=== PATIENT | female | born 1940 | race Caucasian/White ===

== ENCOUNTER 2017-06-18 07:21 | Day surgery (SDC) | payer MEDICARE ==
--- NOTE | 2017-06-07 06:23 | HP ---
CC: Alex Banks MD; Yvrose Saldana MD * ADMISSION HISTORY AND PHYSICAL: DATE OF ADMISSION/SURGERY: 06/18/17 PATIENT OF: Yanet Calderon MD. PRIMARY CARE PHYSICIAN: Alex Banks MD. ATTENDING SURGEON: Yanet Calderon MD. * (DICTATED BY MICHELLE APONTE) CHIEF COMPLAINT: Right breast cancer. HISTORY OF PRESENT ILLNESS: Ms. Dunbar is a pleasant 76-year-old female who was referred by Dr. Banks to [facility] for discussion of right breast cancer. The patient unfortunately underwent a screening mammogram earlier this month that revealed abnormality on the right breast. 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 The patient herself denies any changes in her breasts. She denies any skin changes, nipple discharge, lumps, or masses. In retrospect, she notes having some nipple discharge about 20 years ago that was bilaterally noted and then resolved spontaneously. She denied any changes in either breast since then. She has never had a breast biopsy before. She does have a family history of breast cancer in her sister who was diagnosed at age 68. That same sister in her family had ovarian cancer as well, although the patient herself is not sure about the prognosis. She had menarche at age 14 and first child at age 27 and she did have breast feeding. She was on control pills for a few years approximately 40 years ago. She otherwise denied any breast symptoms until her recent screening mammogram for which she was referred to the [facility] to discuss treatment options. PAST MEDICAL HISTORY: Significant for morbid obesity, hypertension, insulin- dependent diabetes mellitus, osteoarthritis, and multiple environmental and food allergies. She also has history of diabetic retinopathy and neuropathy, history of anxiety, sleep apnea, malignant melanoma of the skin as well as hyperlipidemia. PAST SURGICAL HISTORY: Significant for carpal tunnel release bilaterally as well as hysterectomy and bilateral salpingo-oophorectomy back in the mid 80s. The patient is also status post appendectomy, cholecystectomy, bilateral eye surgery for glaucoma and bilateral cataract extraction in 2011. CURRENT MEDICATIONS: Her medications at home include: 1. Bupropion extended release 300 mg 1 tablet daily. 2. Aleve 220 mg 3 times a day. 3. Magnesium citrate 1200 mg 3 tablets daily. 4. Amlodipine 10 mg p.o. daily. 5. Atenolol 100 mg p.o. daily. 6. Atorvastatin 40 mg p.o. daily. 7. NovoLog 100 unit/mL as directed per sliding scale. 8. Lisinopril 40 mg p.o. daily. 9. Biotin 1000 mcg p.o. daily. 10. Oxybutynin 5 mg p.o. daily. 11. Clonazepam 0.5 mg p.o. q.8 h. as needed for anxiety. 12. The patient also takes multiple vitamin supplements including vitamin C, vitamin D, multivitamin complex, dark chocolate extract, glucosamine, tumeric, and cumin tablets on a daily basis. ALLERGIES: Multiple allergies, mostly environmental and food related allergies ; however, she does not have any known drug allergies. FAMILY HISTORY: Significant for a sister who was diagnosed with breast cancer at age 68. She denies any family history of colorectal malignancies. SOCIAL HISTORY: The patient has never smoked. She rarely drinks alcohol and caffeine intake is minimal. REVIEW OF SYSTEMS: See HPI, otherwise negative. She does report history of headache related to her allergy, possibly migraine, as well as history of anxiety and depression. She also reports history of skin cancers in the past, but not quite sure if they were melanoma or just basal cells. She did have a lot of sun exposure as a child since she was raised in [facility]. She denies any chest pain, back pain, palpitation, cough, or wheezing. No back pain, flank pain, hematuria, dysuria, or urinary frequency. She denies any breast lumps, masses, skin changes or nipple discharge. No abdominal pain, nausea, vomiting, or recent changes in the bowel habits. She denies any fever, chills, night sweats, or recent weight loss. PHYSICAL EXAMINATION GENERAL: She is a pleasant morbidly obese elderly female, in no acute distress or discomfort at the time of her visit. VITAL SIGNS: Reveal blood pressure of 116/74, pulse of 76, temperature of 98, and respirations of 16. She weighs 263 pounds on a 5 feet 5-inch frame with BMI of 44. HEENT: Head is normocephalic, atraumatic. Sclerae anicteric. PERRLA. EOMs intact. Oropharynx pink and moist. NECK: Supple. Trachea midline. No cervical adenopathy or thyromegaly. LUNGS: Clear to auscultation bilaterally. HEART: Regular rate and rhythm. Normal S1 and S2 without rubs, murmurs, or gallops. BACK: With normal curvature. No CVA tenderness. BREASTS: Her breast exam was performed [address] Calderon that revealed slightly asymmetric breasts with the left side being a little larger than the right. Both breasts are pendulous. There is no skin dimpling or nipple retraction. There is a little bruising noted with ecchymotic area to the lateral aspect of the right breast likely from prior stereotactic biopsy. There is no cervical, supraclavicular, or axillary lymphadenopathy. There is no discrete masses or lesions on either breast. There is no skin changes or nipple discharge. ABDOMEN: Soft, round, and obese. No tenderness or distention noted. No hernias, masses, or hepatosplenomegaly. EXTREMITIES: Without cyanosis, clubbing, or edema. NEUROLOGIC: Grossly intact. RECTAL EXAM: Deferred at this time. IMPRESSION: A 76-year-old female with recent screening mammogram revealing right breast invasive ductal carcinoma. PLAN: The patient is scheduled with Dr. Calderon to undergo mammogram-guided needle localization with excision of right breast cancer as well as right axillary sentinel lymph node biopsy. She has a nonpalpable right breast cancer that warrants further treatment. Dr. Calderon had a long discussion with the patient regarding the option of lumpectomy versus a total mastectomy. The rationale, indications, risks, and benefits of surgery were discussed with her today. Risks include but not limited to infection, bleeding, or injury to adjacent structures. The patient understood and had no further questions and we will obtain medical clearance with Dr. Banks's office as well as baseline laboratory workup as well as updated EKG in anticipation for surgery later by the end of the month. We will follow her up accordingly. MICHELLE APONTE [id number]/[facility] #: [id number] LEEANN
[~2017-06-18 07:21] MED LIST: Buffered Lidocaine 0.9% SYRIN* 5 ML/SYR SYRINGE INTRADERM ONE; Sodium Citrate/Citric Acid* 15 ML UDC PO ONE
[2017-06-18] MEDS ORDERED: ceFAZolin 2 GM PREMIX (*) 2 GM/50 ML BAG IVPB ONE (07:30)
[2017-06-18] MEDS ORDERED: Sodium Citrate/Citric Acid* 15 ML UDC ONE (07:30)
[2017-06-18] MEDS ORDERED: Lidocaine 2.5%/Prilocain 2.5%* 5 GM TUBE ONE (07:30)
[2017-06-18] MEDS ORDERED: Heparin VIAL(*) 5000 UNITS/ML VIAL (FIVE THOUSAND) ONE (07:30)
--- NOTE | 2017-06-18 10:26 | RAD ---
INDICATION: Right breast carcinoma COMPARISON: Mammogram May 11, 2017 TECHNIQUE: Informed consent was obtained. A routine timeout procedure was initiated. The right breast was prepped in usual fashion and 4 intradermal injections of a total of 0.34 mCi of technetium 99m sulfur colloid was injected in the lateral periareolar region. Scintigraphic images were then obtained following a brief period FINDINGS: There is prompt visualization of the sentinel node (S) which was subsequently marked on the skin surface. The patient tolerated the procedure well. The patient and images were transferred to the OR holding suite IMPRESSION: SUCCESSFUL SENTINEL NODE IMAGING.
[2017-06-18] MEDS ORDERED: Atenolol TAB* 50 MG PO ONE (11:00)
[2017-06-18] MEDS ORDERED: Lidocain 1% EPI 1:100,000 * 30 ML MDV ONE (12:45)
[2017-06-18] MEDS ORDERED: Bupivacaine 0.5% SDV PF* 10-30ML VIAL ONE (12:46)
[2017-06-18] MEDS ORDERED: Lidocaine 1% INJ* 10 MG/ML 30 ML SDV ONE (12:46)
[2017-06-18] MEDS ORDERED: Insulin LISPRO* 1 UNITS UNIT SUBCUT ONE (12:47)
[2017-06-18] MEDS ORDERED: Midazolam* 1 MG/ML 2 ML VIAL (2 MG) ONE (12:51)
[2017-06-18] MEDS ORDERED: Famotidine IV* 10 MG/ML 2 ML (20 mg) ONE (13:30)
[2017-06-18] MEDS ORDERED: Phenylephrine IV* 40 MCG/ML 10 ML SYRINGE ONE (13:42)
[2017-06-18] MEDS ORDERED: Ketorolac INJ* 30 MG/ML 1 ML VIAL ONE (14:00)
[2017-06-18] MEDS ORDERED: Propofol* 10 MG/ML 20 ML BTL IV PUSH ONE (14:00)
[2017-06-18] MEDS ORDERED: Ondansetron INJ* 2 MG/ML VIAL ONE (14:00)
[2017-06-18] MEDS ORDERED: Mivacurium Chloride* 20 MG/10 ML VIAL IV ONE (14:00)
[2017-06-18] MEDS ORDERED: EPHEDrine (Pressors)* 50 MG/ML VIAL ONE (14:13)
--- NOTE | 2017-06-18 14:15 | RAD ---
INDICATION: Right breast carcinoma-wire needle localization COMPARISON: Right breast mammogram and ultrasound guided right breast biopsy May 19, 2017 TECHNIQUE/FINDINGS: Informed consent was obtained following the usual expiration of risks and benefits the procedure. A routine timeout procedure was conducted. The right breast was prepped in usual fashion and from a lateral approach using a 7.5 cm Soto wire/needle, the right breast mass was localized without difficulty the brachium the wire was placed at the level of the mass. The patient tolerated the procedure well. There are no complications. The patient was transferred to nuclear medicine for the sentinel node scan. IMPRESSION: SUCCESSFUL WIRE NEEDLE LOCALIZATION OF THE RIGHT BREAST MASS. THE SPECIMEN RADIOGRAPH IS PENDING. ADDENDUM: The specimen radiograph shows that the wire is been removed. The microclip and the mass are in the largest specimen.
[2017-06-18] MEDS ORDERED: Lidocaine 2% PF * 5 ML VIAL ONE (14:23)
[2017-06-18 15:31] VITALS: BP 148/62
--- NOTE | 2017-06-19 13:58 | OP ---
CC: [facility]; Dr. Alex Banks; [facility] OPERATIVE REPORT: DATE OF OPERATION: 06/18/17 DATE OF : 42 SURGEON: Yanet Calderon MD. PIN PULLER: Ms. Patricio NP. PRE-OP DIAGNOSIS: Right breast cancer. POST-OP DIAGNOSIS: Right breast cancer. OPERATIVE PROCEDURE: Needle localization, excision of right breast cancer and sentinel lymph node bi opsy. INDICATIONS: Ms. Dunbar is a 76-year-old woman recently diagnosed with breast cancer who has opted fo r breast conserving therapy. On the morning of surgery, she underwent needle localization without di fficulty and also sentinel lymph node localization without difficulty. DESCRIPTION OF PROCEDURE: She was then brought to the operating room, placed on the OR table in the supine position and given general anesthesia. The right breast and axilla were prepped and draped in the usual sterile fashion. After infiltrating with local anesthetic, a curvilinear elliptical incisi on encompassing the wire was made. Subcutaneous tissue was then divided with electrocautery to compl etely excise the mass of tissue from around the wire. It was recognized that at the medial extent of the dissection, the tumor was at the edge of the specimen. Therefore, after the first specimen was o ut and marked in the usual fashion and handed to go to Radiology, a second specimen was taken from me dial to the first specimen such that the lateral aspect of the second specimen apposed the medial asp ect of the first specimen. The second specimen was also marked in the usual fashion and handed off t o go to radiology as well. The report eventually came back from radiology that the first specimen in deed contained the clip and the mass and there was no abnormality noted in the second specimen. Mean while hemostasis was achieved with electrocautery. The wound was irrigated with saline and once it a ppeared that hemostasis was adequate, closure was accomplished. This was done with 3-0 Polysorb in t he subcutaneous layer and skin was closed with 4-0 Prolene in a subcuticular fashion. Attention was then turned to the location of sentinel node. This was in the axillary tail of the pilar ast apparently, so an incision was made after infiltrating with local anesthetic over the area that h ad been marked by Radiology. Subcutaneous tissue was then divided with electrocautery down to the spo t where the activity could be better identified and this turned out to be in the low axilla. The radi oactive lymph node was grasped and excised and noted to have counts around 15,000. However there wer e still elevated counts in the axilla of around 270. So an additional lymph node was taken and ident ified as sentinel node number 2. Its ex-vivo counts were around 500. The axillary bed counts were a round 9. The wound was irrigated with saline. Additional local was instilled into the wound and onc e it was ascertained that hemostasis was adequate, closure was accomplished using 3-0 Vicryl in the s ubcutaneous layer and the skin was closed with 4-0 Surgipro in a subcuticular fashion. Steri-Strips and a dry sterile dressings were applied to both incisions. All sponge and instrument counts were co rrect. The patient tolerated the procedure well and was transferred to recovery in a stable conditio n. [id number]/[facility] #: [id number]
== END 2017-06-18 16:40 | disposition home or self-care (01) ==
LOC: SDS 07:21
PROVIDERS: ATTEND Surgery
DX: C50.911 Malignant neoplasm of unspecified site of right female breast (principal); Z79.4 Long term (current) use of insulin; E66.01 Morbid (severe) obesity due to excess calories; E11.40 Type 2 diabetes mellitus with diabetic neuropathy, unspecified; E11.319 Type 2 diabetes mellitus with unspecified diabetic retinopathy without macular edema; E78.5 Hyperlipidemia, unspecified; G47.30 Sleep apnea, unspecified; F41.9 Anxiety disorder, unspecified; Z85.820 Personal history of malignant melanoma of skin
CPT/HCPCS: 78195; 88307; 88342; A9270-GY; A9541; J0690; J1644; J1885; J2250; J2405; J2704

== ENCOUNTER 2018-01-24 17:32 | Emergency (ER) | payer MEDICARE ==
--- OUTSIDE RECORDS SUMMARY | 2018-01-24 18:00 | XMS REPORT | Continuity of Care Document ---
:1940 External Reference #:[id number] Author Name Kolby Guadarrama M.D. Address [address] [place] [address] Care Team Providers Name Role Phone Alex Banks M.D. Primary Care Physician Unavailable Payers Type Date Identification Numbers Payment Provider Subscriber Policy Number: [id number] Medicare - [facility] Janie Dunbar PayID: [id number] [address] [place] [address] Policy Number: [id number] [facility] Janie Dunbar PayID: [id number] [address] [place] [address] Advance Directives Description No Information Available Problems Date Description Provider Status Onset: Essential hypertension Active Onset: Sleep apnea Active Onset: Panic attack Active Onset: Hypercholesterolemia Active Onset: Mild depression Active Onset: Type 2 diabetes mellitus Active Note: 2000 Onset: Incontinence Active Onset: H/O Malignant melanoma Active Note: 2013 Onset: 01/24/2015 Presence of intraocular lens Kolby Guadarrama M.D. Active Onset: 02/21/2016 Arthritis Kolby Guadarrama M.D. Active Onset: 02/21/2016 Type 2 diabetes mellitus with mild Kolby Guadarrama M.D. Active nonproliferative diabetic retinopathy without macular edema, bilateral Family History Date Family Member(s) Problem(s) Comments Father Glaucoma Mother Cataract Mother Diabetes Mellitus Type 2 Social History Type Date Description Comments Sex Unknown Marital Status Legal Status: Occupation Homemaker Work Status Retired ETOH Use Occasionally consumes alcohol Tobacco Use Start: Unknown Patient has never smoked Recreational Drug Use Denies Drug Use Smoking Status Reviewed: 01/06/18 Patient has never smoked Allergies, Adverse Reactions, Alerts Date Description Reaction Status Severity Comments 02/23/2017 NKDA Active 02/23/2017 Environmental Active Medications Medication Date Status Form Strength Qnty SIG Indications Ordering Provider Microsuns Lamp 02/20/ Active Bulb [id number] Kolby Hare Bulb 2016 Camilo Guadarrama Systane Ultra 01/23/ Active Solution 0.4-0.3% 1 drop Kolby Hare 2015 both john Guadarrama M.D. every day Atorvastatin / Active Tablets 40mg Unknown Calcium 0000 Bupropion HCL ER / Active Tablets ER 300mg Unknown (XL) 0000 24HR Clonazepam / Active Tablets 0.5mg Unknown 0000 Novolog Flexpen / Active Solution 100Unit/ML Unknown 0000 Pen-Inject Lantus Solostar / Active Solution 100Unit/ML Unknown 0000 Pen-Inject Amlodipine / Active Tablets 10mg Unknown Besylate 0000 Atenolol / Active Tablets 100mg Unknown 0000 Lisinopril / Active Tablets 40mg Unknown 0000 Amlactin Ultra / Active Cream Unknown 0000 Acidophilus Plus / Active Tablets Unknown Pectin 0000 Airborne / Active Chewtabs Unknown 0000 Aleve / Active Capsules 220mg as Unknown 0000 needed Aleve PM / Active Tablets 220-25mg Unknown 0000 Saumya Allergy / Active Tablets 180mg as Unknown 0000 needed [place] Nasal Mist / Active Solution 2.65% Unknown Allergy & Sinus 0000 Hypertonic Saline Biotin / Active Capsules 2500mcg Unknown 0000 Calcium Magnesium / Active Tablets 300-300mg Unknown 750 0000 Cranberry / Active Tablets 600mg Unknown 0000 Glucose / Active Chewtabs 4gm Unknown 0000 One Daily Adults / Active Tablets 50+ Unknown 50+ 0000 Vitamin C / Active Capsules 500mg 2 tab by Unknown 0000 mouth every day Vitamin D-3 / Active Capsules 1000Unit Unknown 0000 Ipratropium / Active Solution 0.03% Unknown [place] 0000 Levocetirizine / Active Tablets 5mg Take 1 Unknown Dihydrochloride 0000 Tablet By Mouth Every Day as Needed Myrbetriq / Active Tablets ER 25mg 1 Tab qd Unknown 0000 24HR PO Oxybutynin / Hx Tablets 5mg Unknown Chloride 0000 - 2017 Immunizations Description No Information Available Vital Signs Description No Information Available Results Description No Information Available Procedures Date Code Description Status 02/23/2017 07284 Scanning Computerized Opthalmic Diagnostic Posterior Seg Completed Retina 02/23/2017 20331 Determination Of Refractive State Completed 02/23/2017 45746 Est Patient Comprehensive Exam Completed 02/21/2016 31362 Est Patient Comprehensive Exam Completed 01/24/2015 28748 Est Patient Comprehensive Exam Completed 01/23/2014 89579 Est Patient Comprehensive Exam Completed 05/30/2013 601 [place] Completed 01/20/2013 16790 Determination Of Refractive State Completed 01/20/2013 68037 Est Patient Comprehensive Exam Completed 12/16/2011 17298 Extracapsular Cataract Extraction W/Intraocular Lens Completed 12/09/2011 25071 Extracapsular Cataract Extraction W/Intraocular Lens Completed 11/26/2011 83456 Ophthalmic Biometry Completed 11/26/2011 34935 Ophthalmic Biometry Completed 11/02/2011 79769 Est Patient Comprehensive Exam Completed 11/02/2011 93184 Visual Field Exam Extended Completed 11/02/2011 65197 Scanning Computerized Opthalmic Diagnostic Posterior Seg Completed Retina 10/31/2010 47308 Determination Of Refractive State Completed 10/31/2010 08201 Est Patient Comprehensive Exam Completed 10/22/2009 99824 Iridotomy/Iredectomy By Laser Surgery Completed 10/15/2009 62938 Iridotomy/Iredectomy By Laser Surgery Completed 09/13/2009 03316 Determination Of Refractive State Completed 09/13/2009 04411 Est Patient Comprehensive Exam Completed 02/15/2008 06657 Determination Of Refractive State Completed 02/15/2008 52240 Est Patient Comprehensive Exam Completed 01/28/2007 73374 Determination Of Refractive State Completed 01/28/2007 52819 Est Patient Comprehensive Exam Completed 02/03/2005 54346 Determination Of Refractive State Completed 02/03/2005 14566 Est Patient Comprehensive Exam Completed 01/28/2004 83139 Fundus Photography With Interpretation And Report Completed 01/28/2004 28536 Est Patient Comprehensive Exam Completed Encounters Type Date Location Provider Dx Diagnosis Office Visit 11/26/2011 Kolby Guadarrama, Kolby Guadarrama, 366.16 Senile Nuclear 2:45p jovany UGARTE M.D. Sclerosis / Cataract 366.16 Senile Nuclear Sclerosis / Cataract Office Visit 09/13/2008 9:45a Kolby Guadarrama Marizol C. 366.16 Senile Nuclear , jovany Cuello O.D. Sclerosis / Cataract Plan of Treatment Future Appointment(s):02/24/2018 1:00 pm - Kolby Guadarrama M.D. at [facility] - Kolby Guadarrama M.D.E11.9 Type 2 diabetes mellitus without complicationsComments:Smoking can increase the risk of developing or worsening any eye related disease, as well as affect your overall health. If you are a smoker, we strongly recommend that you quit.If you are not a smoker, we strongly recommend that you do not start. You have diabetes. I do not detect any changes in both of your retinas from diabetes at this time. Proper control of your diabetes is important for the health of your eyes. Changes in your eyes from diabetes can happen without symptoms, so it is important that you have your eyes examined. Dr. Guadarrama has sent a report to your primary care doctor, lettingthem know there is no damage from the Diabetes in your eyes.Follow up:1 Year Follow Up You can expect to have your eyes dilated at your next visit. If Dr. Guadarrama orders any additional testing, it may require extra time. We recommend that you bring sunglasses, as dilationdrops often make you light sensitive until they wear off. We always recommend you bring someone to drive you home if you are uncomfortable driving with your eyes dilated. If you have any questions before your next visit, feel free to call our office at .H04.123 Dry eye syndrome of bilateral lacrimal glandsComments: Both of your eyes appear to be dry. Use artificial tears as directed. You can use the tears more often if you are reading a book or are on the computer, as we tend to blink less, making our eyes dry out more.[facility] offers a few items in our optical department to help alleviate dry eye symptoms. Systane and Refresh are good brands of tears you can use. You can pick these up at any pharmacy and they do not require a prescription.Z96.1 Presence of intraocular lensComments:The artificial lens implants in both eyes appear to be stable at this time.
[2018-01-24] MEDS ORDERED: Acetaminophen TAB* 325 MG PO ONE (18:51)
[2018-01-24 20:43] VITALS: BP 175/89
--- NOTE | 2018-01-24 20:45 | ED ---
Adult Trauma - HPI Summary HPI Summary: A 77 y/o female presents to the ED c/o a head trauma after falling down on uneven pavement in the parking lot of [employer] at 16:00 01/24/2018. She also c/o MAYERS, a bruise on her foot, and an abrasion to her left hand and knee. She denies blurry vision, paresthesia, Fever, Chills, Erythema (eyes), Sore throat, Chest pain, Shortness of Breath, Cough, Abdominal pain, Vomiting, Nausea, Dysuria, Hematuria, Myalgia, Edema, Rash and Dizziness. She denies taking blood thinners. - History of Current Complaint Chief Complaint: EDHeadInjury Stated Complaint: HEAD INJURY Time Seen by Provider: 01/24/18 18:34 Hx Obtained From: Patient, Family/Director Of Accreditation Mechanism of Injury: Fall Onset/Duration: Started Hours Ago Onset of Pain: Immediate Onset Severity: Mild Current Severity: Mild Pain Intensity: 0 Pain Scale Used: 0-10 Numeric Location: Head - Allergy/Home Medications Allergies/Adverse Reactions: Allergies Allergy/AdvReac Type Severity Reaction Status Date / Time peanut Allergy Severe severe Verified 01/24/18 17:50 headache hazelnut Allergy Headache Verified 01/24/18 17:50 ipratropium AdvReac Severe makes nose Verified 01/24/18 17:50 bleed locust Allergy Severe severe Uncoded 07/06/17 13:21 headache ENVIRONMENTAL Allergy Intermediate SEASONAL Uncoded 07/06/17 13:21 lecithin Allergy Intermediate See Comment Uncoded 07/06/17 13:21 raw potato, carrot, apples, Allergy Headache Uncoded 01/24/18 17:50 celery soy AdvReac Severe Headache Uncoded 07/06/17 13:21 PMH/Surg Hx/FS Hx/Imm Hx Endocrine/Hematology History: Reports: Hx Diabetes - INSULIN DEPENDENT Cardiovascular History: Reports: Hx Congestive Heart Failure - CHOLESTEROL CONTROL WITH MEDICATION, Hx Hypertension - ON MEDICATION Denies: Hx Pacemaker/ICD Respiratory History: Reports: Hx Pulmonary Embolism, Hx Sleep Apnea - current CPAP user, Other Respiratory Problems/Disorders - 1960'S PLEURAL RUB GI History: Reports: Hx Gastroesophageal Reflux Disease - OCCASIONAL History: Reports: Other Problems/Disorders - INCONTINENT Denies: Hx Renal Disease Musculoskeletal History: Reports: Hx Arthritis - KNEES AND ANKLES, Other Musculoskeletal History - LEFT POSTERIOR TIBIAL TENDON TEAR, OCCASIONAL FOOT BRACE Denies: Hx Osteoporosis Sensory History: Reports: Hx Cataracts - BILATERAL, Hx Contacts or Glasses - READING, Hx Glaucoma - BILATERAL Denies: Hx Hearing Aid Opthamlomology History: Reports: Hx Cataracts - BILATERAL, Hx Contacts or Glasses - READING, Hx Glaucoma - BILATERAL Neurological History: Comment Only: 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 APPENDECTOMY, CHOLECYSTECTOMY,. DENTAL SURGERY. LEFT CARPAL TUNNEL RELEASE, [facility]. BILATERAL CATARACT SURGERY, [facility]. COLONOSCOPY, [facility]. HYSTERECTOMY,[facility]. SEVERAL SKIN SPOTS EXCISED IN OFFICE. LEFT FOOT SURGERY TOE NAIL REMOVED TO PUT ON LEFT THUMB, ( DID NOT WORK) [facility] Hx Anesthesia Reactions: Yes - COLONOSCOPY-FELT LOTS OF PAIN,NO IV'S IN BACK OF HAND Infectious Disease History: No Infectious Disease History: Reports: Hx Hepatitis - HISTORY OF HEPATITS IN [facility], NO SYMPTOMS SINCE Denies: Traveled Outside the [place] in Last 30 Days - Family History Known Family History: Positive: Other - breast CA Family History: FHx of breast CA - Sister - Social History Alcohol Use: Rare Alcohol Amount: 1 month Substance Use Type: Reports: None Smoking Status (MU): Never Smoked Tobacco Have You Smoked in the Last Year: No Review of Systems Negative: Fever, Chills Negative: Blurred Vision, Erythema Negative: Sore Throat Negative: Chest Pain Negative: Shortness Of Breath, Cough Negative: Abdominal Pain, Vomiting, Nausea Negative: dysuria, hematuria Negative: Myalgia, Edema Positive: Bruising, Other - Positive: abrasion Positive: Headache. Negative: Paresthesia All Other Systems Reviewed And Are Negative: Yes Physical Exam - Summary Physical Exam Summary: Constitutional: Well-developed, Well-nourished, Alert, Cooperative Skin: Warm, Dry HENT: Normocephalic; No Racoons eyes; No wright's sign; left frontal scalp abrasion; No contusion; No hemotympanum; No maxilla facial tenderness or instability; Dentition are smooth; No dental trauma; No trismus Eyes: EOM normal, PERRL Neck: Trachea is midline. No stridor; No JVD; No step off; No posterior cervical spine tenderness Cardio: Rhythm regular, rate normal Heart sounds normal; Intact distal pulses; The pedal pulses are 2+ and symmetric. Radial pulses are 2+ and symmetric. Pulmonary/Chest wall: Effort normal; Breath sounds normal; Equal chest rise; No flail segment; No rib tenderness; No sternal tenderness Abd: Soft, Appearance normal. No distension; No tenderness; No palpable pulsatile mass; No Cullens sign; No Almaraz-Turners sign Musculoskeletal: Abrasion left knee no tenderness, left palmar abrasion, No joint swelling; No vertebral body tenderness; No paraspinal tenderness; No step off or deformity of the spine; Pelvis is stable to lateral compression and rock Neuro: Alert, Oriented x3, Strength 5/5 all extremities. : No blood at urethral meatus Psych: Mood and affect Normal GCS: 15 Triage Information Reviewed: Yes Vital Signs On Initial Exam: Initial Vitals Temp Pulse Resp BP Pulse Ox 97.3 F 98 16 184/95 96 01/24/18 17:38 01/24/18 17:38 01/24/18 17:38 01/24/18 17:38 01/24/18 17:38 Vital Signs Reviewed: Yes Diagnostics - Vital Signs Vital Signs Temp Pulse Resp BP Pulse Ox 01/24/18 20:41 98.6 F 92 20 175/89 94 01/24/18 17:38 97.3 F 98 16 184/95 96 - Laboratory Lab Statement: Any lab studies that have been ordered have been reviewed, and results considered in the medical decision making process. - CT Brain CT Interpretation Completed By: Radiologist - 1. No acute intracranial findings. Chronic and age-related change as above. 2. Left frontal scalp hematoma. This report has been reviewed by the ED physician. Re-Evaluation - Re-Evaluation First Eval Re-Evaluation Time: 18:00 Change: Unchanged Comment: Gave wound care. Adult Trauma Course/Dx - Course Course Of Treatment: A 77 y/o female presents to the ED c/o a head trauma after falling down on uneven pavement in the parking lot of [facility] at 16:00 2017. Her PE revealed a left knee abrasion no tenderness, a left frontal scalp abrasion and a palmar abrasion. Her brain CT showed a left frontal scalp hematoma. Dx: scalp hematoma, hand abrasion. The pt will be discharged home and is agreeable to this plan. - Diagnoses Provider Diagnoses: Scalp hematoma, Hand abrasion Discharge - Sign-Out/Discharge Documenting (check all that apply): Patient Departure - DC - Discharge Plan Condition: Stable Disposition: HOME Patient Education Materials: Acute Wound Care (ED), Abrasion (ED) Referrals: Alex Banks MD [Primary Care Provider] - (2-3 days) Additional Instructions: RETURN TO THE EMERGENCY DEPARTMENT FOR CHANGING OR WORSENING SYMPTOMS - Attestation Statements Document Initiated by Scribe: Yes Documenting Scribe: Brodie Mcgrath Provider For Whom Scribe is Documenting (Include Credential): Benjamin Rosario Scribjannet Attestation: Brodie Diaz, scribed for Benjamin Rosario on 01/24/18 at 2102.
== END 2018-01-24 20:41 | disposition home or self-care (01) ==
LOC: ED 17:32
DX: S09.90XA Unspecified injury of head, initial encounter (principal); X58.XXXA Exposure to other specified factors, initial encounter; Y92.9 Unspecified place or not applicable; Z53.21 Procedure and treatment not carried out due to patient leaving prior to being seen by health care provider
CPT/HCPCS: 70450; A9270-GY

== ENCOUNTER 2018-03-04 19:26 | Emergency (ER) | payer MEDICARE ==
[2018-03-04 21:03] LABS: ABS Basophils 0 10^3/ul (0-0.2); ABS Eosinophils 0.1 10^3/ul (0-0.6); ABS Lymphocytes 1.1 10^3/ul (1.0-4.8); ABS Monocytes 0.4 10^3/ul (0-0.8); ABS Neutrophils 3.7 10^3/ul (1.5-7.7); ABS Nucleated RBC 0 10^3/ul; Eosinophil % 2.7 %; Hematocrit 47 % (35-47); Hemoglobin 15.7 g/dl (12.0-16.0); Lymphocyte % 20.2 %; Mean Corpuscular HGB Conc 34 g/dl (31-36); Mean Corpuscular Hemoglobin 29 pg (27-31); Mean Corpuscular Volume 87 fL (80-97); Mean Platelet Volume 8.6 fL (7.4-10.4); Nucleated Red Blood Cells % 0.1; Platelet Count 177 10^3/ul (150-450); Red Blood Count 5.36 10^6/ul (4.00-5.40); Red Cell Distribution Width 14 % (10.5-15); White Blood Count 5.4 10^3/ul (3.5-10.8)
[2018-03-04 21:18] LABS: EGFR Non-African American 97.2 (>60)
[2018-03-04] MEDS ORDERED: NS 0.9% 1000 ML* 1,000 ML IV ONE (21:35)
[2018-03-04] MEDS ORDERED: clonazePAM TAB(*) 0.5 MG PO ONE (22:27)
[2018-03-04] MEDS ORDERED: Insulin REGULAR(*) 1 UNITS UNIT SUBCUT ONE (22:53)
[2018-03-05] MEDS ORDERED: Lisinopril TAB* 10 MG PO ONE (00:02)
[2018-03-05] MEDS ORDERED: Benzonatate CAP* 100 MG PO ONE (00:05)
--- NOTE | 2018-03-05 02:36 | ED ---
Influenza-Like Illness - HPI Summary HPI Summary: Patient complains of productive cough, mild sore throat, nasal congestion 2 days. Denies fever, MAYERS, neck stiffness, ear pain, CP, SOB, N/V/D, abdominal pain, change in urine, change in BM. Medical history is HTN, DM, HDL, incontinence, anxiety, skin cancer. Patient states she has not taken her insulin or blood pressure medications today. Also denies taking any antipyretics today. - History of Current Complaint Chief Complaint: EDFluSymptoms Time Seen by Provider: 03/04/18 21:32 Hx Obtained From: Patient, Family/Laundry Marker Supervisor Onset/Duration: Gradual Onset Severity: Moderate Associated Signs & Symptoms: Cough, Sore Throat, Nasal Congestion - Allergy/Home Medications Allergies/Adverse Reactions: Allergies Allergy/AdvReac Type Severity Reaction Status Date / Time peanut Allergy Severe severe Verified 03/04/18 19:48 headache hazelnut Allergy Headache Verified 03/04/18 19:48 ipratropium AdvReac Severe makes nose Verified 03/04/18 19:48 bleed locust Allergy Severe severe Uncoded 07/06/17 13:21 headache ENVIRONMENTAL Allergy Intermediate SEASONAL Uncoded 07/06/17 13:21 lecithin Allergy Intermediate See Comment Uncoded 07/06/17 13:21 raw potato, carrot, apples, Allergy Headache Uncoded 01/24/18 17:50 celery soy AdvReac Severe Headache Uncoded 07/06/17 13:21 PMH/Surg Hx/FS Hx/Imm Hx Endocrine/Hematology History: Reports: Hx Diabetes - INSULIN DEPENDENT Cardiovascular History: Reports: Hx Congestive Heart Failure - CHOLESTEROL CONTROL WITH MEDICATION, Hx Hypertension - ON MEDICATION Denies: Hx Pacemaker/ICD Respiratory History: Reports: Hx Pulmonary Embolism, Hx Sleep Apnea - current CPAP user, Other Respiratory Problems/Disorders - 1960'S PLEURAL RUB GI History: Reports: Hx Gastroesophageal Reflux Disease - OCCASIONAL History: Reports: Other Problems/Disorders - INCONTINENT Denies: Hx Renal Disease Musculoskeletal History: Reports: Hx Arthritis - KNEES AND ANKLES, Other Musculoskeletal History - LEFT POSTERIOR TIBIAL TENDON TEAR, OCCASIONAL FOOT BRACE Denies: Hx Osteoporosis Sensory History: Reports: Hx Cataracts - BILATERAL, Hx Contacts or Glasses - READING, Hx Glaucoma - BILATERAL Denies: Hx Hearing Aid Opthamlomology History: Reports: Hx Cataracts - BILATERAL, Hx Contacts or Glasses - READING, Hx Glaucoma - BILATERAL Neurological History: Comment Only: 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 APPENDECTOMY, CHOLECYSTECTOMY,. DENTAL SURGERY. LEFT CARPAL TUNNEL RELEASE, [facility]. BILATERAL CATARACT SURGERY, [facility]. COLONOSCOPY, [facility]. [place]STERECTOMY,[place]. SEVERAL SKIN SPOTS EXCISED IN OFFICE. LEFT FOOT SURGERY TOE NAIL REMOVED TO PUT ON LEFT THUMB, ( DID NOT WORK) [facility] Hx Anesthesia Reactions: Yes - COLONOSCOPY-FELT LOTS OF PAIN,NO IV'S IN BACK OF HAND Infectious Disease History: No Infectious Disease History: Reports: Hx Hepatitis - HISTORY OF HEPATITS IN [facility], NO SYMPTOMS SINCE Denies: Traveled Outside the in Last 30 Days - Family History Known Family History: Positive: Other - breast CA Family History: FHx of breast CA - Sister - Social History Alcohol Use: Rare Alcohol Amount: 1 month Substance Use Type: Reports: None Smoking Status (MU): Never Smoked Tobacco Have You Smoked in the Last Year: No Review of Systems Constitutional: Negative Eyes: Negative Positive: Sore Throat, Nasal Discharge Cardiovascular: Negative Positive: Cough Gastrointestinal: Negative Genitourinary: Negative Musculoskeletal: Negative Skin: Negative Neurological: Negative Psychological: Normal All Other Systems Reviewed And Are Negative: Yes Physical Exam Triage Information Reviewed: Yes Vital Signs On Initial Exam: Initial Vitals Temp Pulse Resp BP Pulse Ox 98 F 110 20 170/91 95 03/04/18 19:43 03/04/18 19:43 03/04/18 19:43 03/04/18 19:43 03/04/18 19:43 Vital Signs Reviewed: Yes Appearance: Positive: Well-Appearing Skin: Positive: Warm Head/Face: Positive: Normal Head/Face Inspection Eyes: Positive: Normal ENT: Positive: Normal ENT inspection Neck: Positive: Supple Respiratory/Lung Sounds: Positive: Clear to Auscultation Cardiovascular: Positive: Normal Abdomen Description: Positive: Nontender Musculoskeletal: Positive: Normal Neurological: Positive: Normal Psychiatric: Positive: Normal AVPU Assessment: Alert - [place] Coma Scale Best Eye Response: 4 - Spontaneous Best Motor Response: 6 - Obeys Commands Best Verbal Response: 5 - Oriented Coma Scale Total: 15 Diagnostics - Vital Signs Vital Signs Temp Pulse Resp BP Pulse Ox 03/05/18 01:06 107 157/105 94 03/05/18 01:00 107 93 03/05/18 00:36 107 178/99 92 03/05/18 00:08 107 95 03/05/18 00:07 108 196/124 96 03/05/18 00:00 108 95 03/04/18 23:37 108 163/117 97 03/04/18 23:13 111 94 03/04/18 23:12 112 213/120 95 03/04/18 22:39 210/104 03/04/18 22:06 95 214/116 93 03/04/18 19:43 98 F 110 20 170/91 95 - Laboratory Lab Results: Lab Results 03/04/18 03/04/18 03/04/18 Range/Units 20:52 20:52 20:52 WBC 5.4 (3.5-10.8) 10^3/ul RBC 5.36 (4.00-5.40) 10^6/ul Hgb 15.7 (12.0-16.0) g/dl Hct 47 (35-47) % MCV 87 (80-97) fL MCH 29 (27-31) pg MCHC 34 (31-36) g/dl RDW 14 (10.5-15) % Plt Count 177 (150-450) 10^3/ul MPV 8.6 (7.4-10.4) fL Neut % (Auto) 69.3 % Lymph % (Auto) 20.2 % [place] % (Auto) 7.1 % Eos % (Auto) 2.7 % Baso % (Auto) 0.7 % Absolute Neuts (auto) 3.7 (1.5-7.7) 10^3/ul Absolute Lymphs (auto) 1.1 (1.0-4.8) 10^3/ul Absolute Monos (auto) 0.4 (0-0.8) 10^3/ul Absolute Eos (auto) 0.1 (0-0.6) 10^3/ul Absolute Basos (auto) 0 (0-0.2) 10^3/ul Absolute Nucleated RBC 0 10^3/ul Nucleated RBC % 0.1 VBG pH (7.33-7.43) VBG pCO2 (41-51) mmHg VBG pO2 (35-45) mmHg VBG HCO3 (24-28) mmol/L VBG O2 Saturation (70-80) % VBG Base Excess (0-4) Sodium 139 (135-145) mmol/L Potassium 4.0 (3.5-5.0) mmol/L Chloride 102 (101-111) mmol/L Carbon Dioxide 26 (22-32) mmol/L Anion Gap 11 (2-11) mmol/L BUN 13 (6-24) mg/dL Creatinine 0.60 (0.51-0.95) mg/dL Est GFR ( Amer) 117.6 (>60) Est GFR (Non-Af Amer) 97.2 (>60) BUN/Creatinine Ratio 21.7 H (8-20) Glucose 447 H (70-100) mg/dL POC Glucose (mg/dL) (70-100) mg/dL Lactic Acid 1.0 (0.5-2.0) mmol/L Calcium 9.2 (8.6-10.3) mg/dL Total Bilirubin 0.60 (0.2-1.0) mg/dL AST 21 (13-39) U/L ALT 26 (7-52) U/L Alkaline Phosphatase 162 H (34-104) U/L Troponin I 0.04 H* (<0.04) ng/mL Total Protein 6.4 (6.4-8.9) g/dL Albumin 4.0 (3.2-5.2) g/dL Globulin 2.4 (2-4) g/dL Albumin/Globulin Ratio 1.7 (1-3) Influenza A (Rapid) (Negative) Influenza B (Rapid) (Negative) 03/04/18 03/04/18 03/05/18 Range/Units 21:58 22:31 00:29 WBC (3.5-10.8) 10^3/ul RBC (4.00-5.40) 10^6/ul Hgb (12.0-16.0) g/dl Hct (35-47) % MCV (80-97) fL MCH (27-31) pg MCHC (31-36) g/dl RDW (10.5-15) % Plt Count (150-450) 10^3/ul MPV (7.4-10.4) fL Neut % (Auto) % Lymph % (Auto) % [place] % (Auto) % Eos % (Auto) % Baso % (Auto) % Absolute Neuts (auto) (1.5-7.7) 10^3/ul Absolute Lymphs (auto) (1.0-4.8) 10^3/ul Absolute Monos (auto) (0-0.8) 10^3/ul Absolute Eos (auto) (0-0.6) 10^3/ul Absolute Basos (auto) (0-0.2) 10^3/ul Absolute Nucleated RBC 10^3/ul Nucleated RBC % VBG pH 7.38 (7.33-7.43) VBG pCO2 46 (41-51) mmHg VBG pO2 42 (35-45) mmHg VBG HCO3 25.5 (24-28) mmol/L VBG O2 Saturation 82.2 H (70-80) % VBG Base Excess 1.4 (0-4) Sodium (135-145) mmol/L Potassium (3.5-5.0) mmol/L Chloride (101-111) mmol/L Carbon Dioxide (22-32) mmol/L Anion Gap (2-11) mmol/L BUN (6-24) mg/dL Creatinine (0.51-0.95) mg/dL Est GFR ( Amer) (>60) Est GFR (Non-Af Amer) (>60) BUN/Creatinine Ratio (8-20) Glucose (70-100) mg/dL POC Glucose (mg/dL) 381 H (70-100) mg/dL Lactic Acid (0.5-2.0) mmol/L Calcium (8.6-10.3) mg/dL Total Bilirubin (0.2-1.0) mg/dL AST (13-39) U/L ALT (7-52) U/L Alkaline Phosphatase (34-104) U/L Troponin I (<0.04) ng/mL Total Protein (6.4-8.9) g/dL Albumin (3.2-5.2) g/dL Globulin (2-4) g/dL Albumin/Globulin Ratio (1-3) Influenza A (Rapid) Negative (Negative) Influenza B (Rapid) Negative (Negative) 03/05/18 Range/Units 01:12 WBC (3.5-10.8) 10^3/ul RBC (4.00-5.40) 10^6/ul Hgb (12.0-16.0) g/dl Hct (35-47) % MCV (80-97) fL MCH (27-31) pg MCHC (31-36) g/dl RDW (10.5-15) % Plt Count (150-450) 10^3/ul MPV (7.4-10.4) fL Neut % (Auto) % Lymph % (Auto) % [place] % (Auto) % Eos % (Auto) % Baso % (Auto) % Absolute Neuts (auto) (1.5-7.7) 10^3/ul Absolute Lymphs (auto) (1.0-4.8) 10^3/ul Absolute Monos (auto) (0-0.8) 10^3/ul Absolute Eos (auto) (0-0.6) 10^3/ul Absolute Basos (auto) (0-0.2) 10^3/ul Absolute Nucleated RBC 10^3/ul Nucleated RBC % VBG pH (7.33-7.43) VBG pCO2 (41-51) mmHg VBG pO2 (35-45) mmHg VBG HCO3 (24-28) mmol/L VBG O2 Saturation (70-80) % VBG Base Excess (0-4) Sodium (135-145) mmol/L Potassium (3.5-5.0) mmol/L Chloride (101-111) mmol/L Carbon Dioxide (22-32) mmol/L Anion Gap (2-11) mmol/L BUN (6-24) mg/dL Creatinine (0.51-0.95) mg/dL Est GFR ( Amer) (>60) Est GFR (Non-Af Amer) (>60) BUN/Creatinine Ratio (8-20) Glucose (70-100) mg/dL POC Glucose (mg/dL) (70-100) mg/dL Lactic Acid (0.5-2.0) mmol/L Calcium (8.6-10.3) mg/dL Total Bilirubin (0.2-1.0) mg/dL AST (13-39) U/L ALT (7-52) U/L Alkaline Phosphatase (34-104) U/L Troponin I 0.03 (<0.04) ng/mL Total Protein (6.4-8.9) g/dL Albumin (3.2-5.2) g/dL Globulin (2-4) g/dL Albumin/Globulin Ratio (1-3) Influenza A (Rapid) (Negative) Influenza B (Rapid) (Negative) Result Diagrams: 03/04/18 20:52 03/04/18 20:52 Lab Statement: Any lab studies that have been ordered have been reviewed, and results considered in the medical decision making process. Flu Symptom Course/Dx - Course Course Of Treatment: Patient complains of productive cough, mild sore throat, nasal congestion 2 days. Denies fever, MAYERS, neck stiffness, ear pain, CP, SOB, N/V/D, abdominal pain, change in urine, change in BM. Medical history is HTN, DM, HDL, incontinence, anxiety, skin cancer. Patient states she has not taken her insulin or blood pressure medications today. Also denies taking any antipyretics today. Physical exam unremarkable. Afebrile. Patient mildly tachycardic. Elevated blood pressure up to 214/116 resolved with lisinopril 40 mg by mouth which patient takes nightly. Elevated BGL 447 decreased to 308 with 10 units regular insulin subcutaneous. Patient insists on drinking her Coca-Cola. Initial elevated troponin of 0.04 decreased to 0.03 on second troponin. Alkaline phosphatase 163 at patient baseline. WBC normal. Labs otherwise unremarkable. Chest x-ray unremarkable. EKG positive for sinus tachycardia, RBBB, LVH. Flu negative. Discussed patient with Dr. Schneider who agrees patient can be discharged home. - Diagnoses Provider Diagnoses: Viral syndrome Discharge - Sign-Out/Discharge Documenting (check all that apply): Sign-Out Patient Signing out patient TO: Jorge Elise - 02:50 - Discharge Plan Condition: Stable Disposition: HOME Prescriptions: Benzonatate CAP* [Tessalon 100 MG CAP*] 200 mg PO TID PRN 5 Days #30 cap PRN Reason: Cough Patient Education Materials: Viral Syndrome (ED) Referrals: Alex Banks MD [Primary Care Provider] - Additional Instructions: Follow-up with primary care. Return to the ED for any new or worsening symptoms - Billing Disposition and Condition Condition: STABLE Disposition: Home
[2018-03-05 02:41] VITALS: BP 184/106
== END 2018-03-05 04:24 | disposition home or self-care (01) ==
LOC: ED 19:26
DX: B34.9 Viral infection, unspecified (principal); E11.9 Type 2 diabetes mellitus without complications; Z79.4 Long term (current) use of insulin; I10 Essential (primary) hypertension; E78.9 Disorder of lipoprotein metabolism, unspecified; F41.9 Anxiety disorder, unspecified; F32.9 Major depressive disorder, single episode, unspecified
CPT/HCPCS: 36415; 71046; 80053; 82803; 83605; 84484; 85025; 87040; 93005; 96360; 96372; 99284; A9270-GY

== ENCOUNTER 2018-03-14 12:01 | Emergency (ER) | payer MEDICARE ==
[2018-03-14 13:19] LABS: ABS Basophils 0.1 10^3/ul (0-0.2); ABS Eosinophils 0.2 10^3/ul (0-0.6); ABS Monocytes 0.5 10^3/ul (0-0.8); ABS Neutrophils 4.3 10^3/ul (1.5-7.7); ABS Nucleated RBC 0 10^3/ul; Hematocrit 46 % (35-47); Hemoglobin 15.6 g/dl (12.0-16.0); Lymphocyte % 28.3 %; Mean Corpuscular HGB Conc 34 g/dl (31-36); Mean Corpuscular Hemoglobin 30 pg (27-31); Mean Corpuscular Volume 88 fL (80-97); Nucleated Red Blood Cells % 0.2; Platelet Count 229 10^3/ul (150-450); Red Blood Count 5.28 10^6/ul (4.00-5.40); Red Cell Distribution Width 14 % (10.5-15); White Blood Count 7.1 10^3/ul (3.5-10.8)
[2018-03-14] MEDS ORDERED: Albuterol 0.5% CONC NEB.SOL* 5 MG/ML 20 ml BOT INH ONE (13:26)
[2018-03-14] MEDS ORDERED: Azithromycin TAB* 250 MG PO ONE (13:27)
[2018-03-14 13:34] LABS: Albumin/Globulin Ratio 1.7 (1-3); BUN/Creatinine Ratio 22.6 (8-20); Calcium 9.2 mg/dL (8.6-10.3); EGFR Non-African American 112.2 (>60); Globulin 2.3 g/dL (2-4); Potassium 4.2 mmol/L (3.5-5.0); Total Bilirubin 0.6 mg/dL (0.2-1.0); Total Protein 6.3 g/dL (6.4-8.9)
--- NOTE | 2018-03-14 14:14 | ED ---
Respiratory - HPI Summary HPI Summary: The patient is a 77 y/o F presenting to [facility] with a chief complaint of SOB, productive cough, and sinus congestion for two weeks. The cough is characterized by yellow phlegm and there is no blood. She is not currently in any pain. She denies fevers and change in appetite. She was in the ED a week ago for similar symptoms, but she came from and was advised to come here. - History of Current Complaint Chief Complaint: EDUpperRespComplaint Stated Complaint: SEVERE COUGH Time Seen by Provider: 03/14/18 12:48 Hx Obtained From: Patient Onset/Duration: Gradual Onset, Lasting Weeks - two weeks, Still Present Initial Severity: Mild Current Severity: Moderate Pain Intensity: 0 Character: Cough (Productive) Sputum Amount: Small Sputum Color: Yellow Aggravating Factor(s): Nothing Alleviating Factor(s): Nothing Associated Signs and Symptoms: SOB, Nasal Congestion - Allergy/Home Medications Allergies/Adverse Reactions: Allergies Allergy/AdvReac Type Severity Reaction Status Date / Time peanut Allergy Severe severe Verified 03/14/18 12:15 headache hazelnut Allergy Headache Verified 03/14/18 12:15 ipratropium AdvReac Severe makes nose Verified 03/14/18 12:15 bleed locust Allergy Severe severe Uncoded 03/14/18 12:15 headache ENVIRONMENTAL Allergy Intermediate SEASONAL Uncoded 03/14/18 12:15 lecithin Allergy Intermediate See Comment Uncoded 03/14/18 12:15 raw potato, carrot, apples, Allergy Headache Uncoded 03/14/18 12:15 celery soy AdvReac Severe Headache Uncoded 03/14/18 12:15 PMH/Surg Hx/FS Hx/Imm Hx Endocrine/Hematology History: Reports: Hx Diabetes - INSULIN DEPENDENT Cardiovascular History: Reports: Hx Congestive Heart Failure - CHOLESTEROL CONTROL WITH MEDICATION, Hx Hypertension - ON MEDICATION Denies: Hx Pacemaker/ICD Respiratory History: Reports: Hx Pulmonary Embolism, Hx Sleep Apnea - current CPAP user, Other Respiratory Problems/Disorders - 1960'S PLEURAL RUB GI History: Reports: Hx Gastroesophageal Reflux Disease - OCCASIONAL History: Reports: Other Problems/Disorders - INCONTINENT Denies: Hx Renal Disease Musculoskeletal History: Reports: Hx Arthritis - KNEES AND ANKLES, Other Musculoskeletal History - LEFT POSTERIOR TIBIAL TENDON TEAR, OCCASIONAL FOOT BRACE Denies: Hx Osteoporosis Sensory History: Reports: Hx Cataracts - BILATERAL, Hx Contacts or Glasses - READING, Hx Glaucoma - BILATERAL Denies: Hx Hearing Aid Opthamlomology History: Reports: Hx Cataracts - BILATERAL, Hx Contacts or Glasses - READING, Hx Glaucoma - BILATERAL Neurological History: Comment Only: 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 APPENDECTOMY, CHOLECYSTECTOMY,. DENTAL SURGERY. LEFT CARPAL TUNNEL RELEASE, [facility]. BILATERAL CATARACT SURGERY, [facility]. COLONOSCOPY, [facility]. HYSTERECTOMY,[facility]. SEVERAL SKIN SPOTS EXCISED IN OFFICE. LEFT FOOT SURGERY TOE NAIL REMOVED TO PUT ON LEFT THUMB, ( DID NOT WORK) [facility] Hx Anesthesia Reactions: Yes - COLONOSCOPY-FELT LOTS OF PAIN,NO IV'S IN BACK OF HAND Infectious Disease History: No Infectious Disease History: Reports: Hx Hepatitis - HISTORY OF HEPATITS IN [facility], NO SYMPTOMS SINCE Denies: Traveled Outside the [place] in Last 30 Days - Family History Known Family History: Positive: Other - breast CA Family History: FHx of breast CA - Sister - Social History Alcohol Use: Rare Alcohol Amount: 1 month Substance Use Type: Reports: None Smoking Status (MU): Never Smoked Tobacco Have You Smoked in the Last Year: No Review of Systems Negative: Fever Positive: Other - POSITIVE: sinus congestion; NEGATIVE: decrease in appetite Positive: Shortness Of Breath, Cough - productive with yellow phlegm but no blood All Other Systems Reviewed And Are Negative: Yes Physical Exam - Summary Physical Exam Summary: Appearance: Well-appearing, Well-nourished, lying in bed comfortably Skin: Warm, dry, no obvious rash Eyes: sclera anicteric, no conjunctival pallor ENT: mucous membranes moist, pharynx appears normal Neck: Supple, nontender Respiratory: Clear to auscultation, no signs of respiratory distress Cardiovascular: Normal S1, S2. No murmurs. Normal distal pulses in tibial and radial bilaterally. Abdomen: Soft, nontender, normal active bowel sounds present Musculoskeletal: Normal, Strength/ROM Intact Neurological: A&Ox3, awake and alert, mentation is normal, speech is fluent and appropriate Psychiatric: affect is normal, does not appear anxious or depressed Triage Information Reviewed: Yes Vital Signs On Initial Exam: Initial Vitals Temp Pulse Resp BP Pulse Ox 97.9 F 94 16 166/88 99 03/14/18 12:12 03/14/18 12:12 03/14/18 12:12 03/14/18 12:12 03/14/18 12:12 Vital Signs Reviewed: Yes Diagnostics - Vital Signs Vital Signs Temp Pulse Resp BP Pulse Ox 03/14/18 13:22 94 182/103 97 03/14/18 13:21 92 98 03/14/18 12:12 97.9 F 94 16 166/88 99 - Laboratory Lab Results: Lab Results 03/14/18 03/14/18 Range/Units 13:05 13:05 WBC 7.1 (3.5-10.8) 10^3/ul RBC 5.28 (4.00-5.40) 10^6/ul Hgb 15.6 (12.0-16.0) g/dl Hct 46 (35-47) % MCV 88 (80-97) fL MCH 30 (27-31) pg MCHC 34 (31-36) g/dl RDW 14 (10.5-15) % Plt Count 229 (150-450) 10^3/ul MPV 8.0 (7.4-10.4) fL Neut % (Auto) 60.8 % Lymph % (Auto) 28.3 % [place] % (Auto) 6.7 % Eos % (Auto) 3.0 % Baso % (Auto) 1.2 % Absolute Neuts (auto) 4.3 (1.5-7.7) 10^3/ul Absolute Lymphs (auto) 2.0 (1.0-4.8) 10^3/ul Absolute Monos (auto) 0.5 (0-0.8) 10^3/ul Absolute Eos (auto) 0.2 (0-0.6) 10^3/ul Absolute Basos (auto) 0.1 (0-0.2) 10^3/ul Absolute Nucleated RBC 0 10^3/ul Nucleated RBC % 0.2 Sodium 141 (135-145) mmol/L Potassium 4.2 (3.5-5.0) mmol/L Chloride 105 (101-111) mmol/L Carbon Dioxide 28 (22-32) mmol/L Anion Gap 8 (2-11) mmol/L BUN 12 (6-24) mg/dL Creatinine 0.53 (0.51-0.95) mg/dL Est GFR ( Amer) 135.7 (>60) Est GFR (Non-Af Amer) 112.2 (>60) BUN/Creatinine Ratio 22.6 H (8-20) Glucose 124 H (70-100) mg/dL Calcium 9.2 (8.6-10.3) mg/dL Total Bilirubin 0.60 (0.2-1.0) mg/dL AST 28 (13-39) U/L ALT 27 (7-52) U/L Alkaline Phosphatase 132 H (34-104) U/L Troponin I 0.01 (<0.04) ng/mL Total Protein 6.3 L (6.4-8.9) g/dL Albumin 4.0 (3.2-5.2) g/dL Globulin 2.3 (2-4) g/dL Albumin/Globulin Ratio 1.7 (1-3) Result Diagrams: 03/14/18 13:05 03/14/18 13:05 Lab Statement: Any lab studies that have been ordered have been reviewed, and results considered in the medical decision making process. - Radiology CXR Radiology Interpretation Completed By: Radiologist Summary of Radiographic Findings: No active cardiopulmonary disease is noted. ED physician has reviewed this report. - EKG 13:19 Cardiac Rate: NL - 93 BPM EKG Rhythm: Sinus Rhythm Summary of EKG Findings: RBBB. Re-Evaluation - Re-Evaluation First Eval Re-Evaluation Time: 14:40 Change: Improved Comment: The Albuterol treatment helped her breathing. I spoke to her about EKG and CXR results, and we discussed discarge home. Disposition - Course Course Of Treatment: The patient is a 77 y/o F presenting to [facility] with a chief complaint of SOB, productive cough, and sinus congestion for two weeks. The cough is characterized by yellow phlegm and there is no blood. She denies fevers and change in appetite. Physical exam is negative. In the ED course, the patient was given Albuterol, Zithromax, and Duoneb. Blood work is negative. EKG reveals RBBB. CXR is negative. She is diagnosed with acute bronchitis. She will be discharged home with a prescription for Zithromax, education materials, and follow up with PCP. She agrees with this plan and understands the need for return to the ED for new or worsening symptoms. - Diagnoses Provider Diagnoses: Acute bronchitis Discharge - Sign-Out/Discharge Documenting (check all that apply): Patient Departure - Patient will be discharged home. - Discharge Plan Condition: Good Disposition: HOME Prescriptions: Azithromycin TAB* [Zithromax TAB (Z-LISA) 250 mg #6 tabs] 2 tab PO .TODAY, THEN 1 DAILY #1 lisa Patient Education Materials: Acute Bronchitis (ED) Referrals: Alex Banks MD [Primary Care Provider] - - Billing Disposition and Condition Condition: GOOD Disposition: Home - Attestation Statements Document Initiated by Maty: Yes Documenting Scribe: Jany Hernandes Provider For Whom Maty is Documenting (Include Credential): Dr. Jorge Elise MD Scribe Attestation: Jany Diaz scribed for Dr. Jorge Elise MD on 03/15/18 at 1256. Scribe Documentation Reviewed: Yes Provider Attestation: The documentation as recorded by the Jany alvarez accurately reflects the service I personally performed and the decisions made by me, Dr. Jorge Elise MD Status of Scrkirsten Document: Viewed
[2018-03-14] MEDS ORDERED: Albuterol/Ipratropium NEB.SOL* Albuterol 2.5 MG/Ipratropium 0.5 MG 3 ML INH ONE (14:40)
[2018-03-14 15:03] VITALS: BP 179/102
== END 2018-03-14 15:01 | disposition home or self-care (01) ==
LOC: ED 12:01
DX: J20.9 Acute bronchitis, unspecified (principal); I45.10 Unspecified right bundle-branch block; E11.9 Type 2 diabetes mellitus without complications; Z79.4 Long term (current) use of insulin; I10 Essential (primary) hypertension; E78.5 Hyperlipidemia, unspecified; F41.9 Anxiety disorder, unspecified; F32.9 Major depressive disorder, single episode, unspecified; Z85.3 Personal history of malignant neoplasm of breast
CPT/HCPCS: 36415; 71046; 80053; 84484; 85025; 93005; 99282; A9270-GY

== ENCOUNTER 2019-05-24 06:21 | Inpatient (IN) | payer MEDICARE ==
[2019-05-24] MEDS ORDERED: Albuterol (2.5 MG) 0.5 % CONC 2.5 MG/0.5 ML NEB.SOLN (ICU and ED only) INH ONE (06:32)
[2019-05-24] MEDS ORDERED: NS 0.9% 1000 ML** 1,000 ML IV ONE (06:32)
[2019-05-24] MEDS ORDERED: Albuterol 2.5 MG/3 ML NEB.SOL* (0.083%) INH ONE (06:44)
[2019-05-24 07:10] LABS: ABS Eosinophils 0.2 10^3/ul (0-0.6); ABS Lymphocytes 0.8 10^3/ul (1.0-4.8); ABS Monocytes 0.5 10^3/ul (0-0.8); ABS Neutrophils 3.6 10^3/ul (1.5-7.7); Hematocrit 44 % (35-47); Hemoglobin 14.9 g/dL (12.0-16.0); Lymphocyte % 15.8 %; Mean Corpuscular HGB Conc 34 g/dL (31-36); Mean Corpuscular Hemoglobin 31 pg (27-31); Mean Corpuscular Volume 91 fL (80-97); Mean Platelet Volume 8.3 fL (7.4-10.4); Nucleated Red Blood Cells % 0.1; Platelet Count 155 10^3/uL (150-450); Red Blood Count 4.84 10^6 /uL (3.70-4.87); Red Cell Distribution Width 13 % (10-15); White Blood Count 5.2 10^3/uL (3.5-10.8)
[2019-05-24 07:26] LABS: Albumin 3.8 g/dL (3.2-5.2); Albumin/Globulin Ratio 1.6 (1-3); BUN/Creatinine Ratio 16.4 (8-20); C Reactive Protein 11.45 mg/L (<8.01); Calcium 8.4 mg/dL (8.6-10.3); EGFR African American 115.1 (>60); EGFR Non-African American 95.1 (>60); Globulin 2.4 g/dL (2-4); Total Bilirubin 0.6 mg/dL (0.2-1.0); Total Protein 6.2 g/dL (6.4-8.9)
[2019-05-24 07:27] LABS: INR 1.03 (0.82-1.09)
--- NOTE | 2019-05-24 07:50 | ED ---
Respiratory - HPI Summary HPI Summary: Patient is a 74-year-old female who presents emergency Department from [place] for cough and shortness of breath. Patient states she's had a cough for about 10 days and started feeling very short of breath today. Denies associated symptoms of fever, chills, abdominal pain, vomiting, diarrhea, chest pain. Past medical history of diabetes, hypertension, depression/anxiety. Patient's daughter states she easily gets respiratory infections. Symptoms moderate in severity. No current modifying factors. - History of Current Complaint Chief Complaint: EDShortnessOfBreath Stated Complaint: SOB PER EMS Time Seen by Provider: 05/24/19 06:24 Pain Intensity: 0 - Allergy/Home Medications Allergies/Adverse Reactions: Allergies Allergy/AdvReac Type Severity Reaction Status Date / Time peanut Allergy Severe severe Verified 05/24/19 06:29 headache hazelnut Allergy Headache Verified 05/24/19 06:29 ipratropium AdvReac Severe makes nose Verified 05/24/19 06:29 bleed locust Allergy Severe severe Uncoded 05/24/19 06:29 headache ENVIRONMENTAL Allergy Intermediate SEASONAL Uncoded 05/24/19 06:29 lecithin Allergy Intermediate See Comment Uncoded 05/24/19 06:29 raw potato, carrot, apples, Allergy Headache Uncoded 05/24/19 06:29 celery soy AdvReac Severe Headache Uncoded 05/24/19 06:29 Home Medications: Home Medications Ascorbic Acid TAB* [Vitamin C TAB*] 500 mg PO QAM 07/03/14 [History Confirmed 06/18/17] Atorvastatin* [Lipitor 40 MG*] 40 mg PO BEDTIME 07/03/14 [History Confirmed ] Biotin 2,500 mcg SL QAM 07/03/14 [History Confirmed 06/18/17] Bupropion XL (NF) [Wellbutrin XL 300 MG (NF)] 300 mg PO QAM 07/03/14 [History Confirmed 06/18/17] Cholecalciferol (Vitamin D3) [Vitamin D3] 1,000 unit PO QAM 07/03/14 [History Confirmed 06/18/17] Insulin Aspart [Novolog Flexpen] 12 - 14 units SUBCUT TID WITH MEALS 07/03/14 [ History Confirmed 06/18/17] clonazePAM TAB(*) [Klonopin TAB(*)] 0.5 mg PO DAILY PRN 07/03/14 [History Confirmed 06/18/17] clonazePAM TAB(*) [Klonopin TAB(*)] 2 tab PO BEDTIME 07/03/14 [History Confirmed 06/18/17] Atenolol [Tenormin 100 MG] 100 mg PO QAM 06/11/17 [History Confirmed 06/18/17] amLODIPine TAB* [Norvasc 5 mg TAB*] 10 mg PO QAM 06/11/17 [History Confirmed ] lisinopriL [Lisinopril] 40 mg PO BEDTIME 06/11/17 [History Confirmed 06/18/17] Anastrozole (NF) [Arimidex (NF)] 1 mg PO DAILY 05/24/19 [History Confirmed 05/23] Calcium Carb/Magnesium Hydrox [Antacid 1000-200 mg Tab Chew] 3 each PO BEDTIME 05/24/19 [History Confirmed 05/24/19] Cider Vinegar [Apple Cider Vinegar] 300 mg PO DAILY 05/24/19 [History Confirmed 05/24/19] Cranberry Fruit [Cranberry] 450 mg PO DAILY 05/24/19 [History Confirmed 05/24/19 ] Cyanocobalamin TAB* [Vitamin B12 TAB*] 500 mcg PO DAILY 05/24/19 [History Confirmed 05/24/19] Empaglifozin (NF) [Jardiance] 25 mg PO DAILY 05/24/19 [History Confirmed ] Escitalopram * [Lexapro *] 20 mg PO DAILY 05/24/19 [History Confirmed 05/24/19] Insulin Glargine,Hum.rec.anlog [Basaglar Kwikpen 100 inuts/ml 3 ml x 5 Pens] 50 units SUBCUT BID MDD 90u 05/24/19 [History Confirmed 05/24/19] L.acidoph,Paracasei, B.lactis [Probiotic] 1 each PO DAILY 05/24/19 [History Confirmed 05/24/19] LevoCETirizine TAB (NF) [Xyzal TAB (NF)] 5 mg PO DAILY 05/24/19 [History Confirmed 05/24/19] Mirabegron (NF) [Myrbetriq (NF)] 25 mg PO BID 05/24/19 [History Confirmed ] Naproxen Sod/Diphenhydramine [Aleve PM 220-25 mg] 1 tab PO BEDTIME 05/24/19 [ History Confirmed 05/24/19] PMH/Surg Hx/FS Hx/Imm Hx Previously Healthy: Yes Endocrine/Hematology History: Reports: Hx Diabetes - INSULIN DEPENDENT Cardiovascular History: Reports: Hx Congestive Heart Failure - CHOLESTEROL CONTROL WITH MEDICATION, Hx Hypertension - ON MEDICATION Denies: Hx Pacemaker/ICD Respiratory History: Reports: Hx Pulmonary Embolism, Hx Sleep Apnea - current CPAP user, Other Respiratory Problems/Disorders - 1960'S PLEURAL RUB GI History: Reports: Hx Gastroesophageal Reflux Disease - OCCASIONAL History: Reports: Other Problems/Disorders - INCONTINENT Denies: Hx Renal Disease Musculoskeletal History: Reports: Hx Arthritis - KNEES AND ANKLES, Other Musculoskeletal History - LEFT POSTERIOR TIBIAL TENDON TEAR, OCCASIONAL FOOT BRACE Denies: Hx Osteoporosis Sensory History: Reports: Hx Cataracts - BILATERAL, Hx Contacts or Glasses - READING, Hx Glaucoma - BILATERAL Denies: Hx Hearing Aid Opthamlomology History: Reports: Hx Cataracts - BILATERAL, Hx Contacts or Glasses - READING, Hx Glaucoma - BILATERAL Neurological History: Comment Only: 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 APPENDECTOMY, CHOLECYSTECTOMY,. DENTAL SURGERY. LEFT CARPAL TUNNEL RELEASE, [facility]. BILATERAL CATARACT SURGERY, [facility]. COLONOSCOPY, [facility]. HYSTERECTOMY,[facility]. SEVERAL SKIN SPOTS EXCISED IN OFFICE. LEFT FOOT SURGERY TOE NAIL REMOVED TO PUT ON LEFT THUMB, ( DID NOT WORK) [facility] Hx Anesthesia Reactions: Yes - COLONOSCOPY-FELT LOTS OF PAIN,NO IV'S IN BACK OF HAND Infectious Disease History: No Infectious Disease History: Reports: Hx Hepatitis - HISTORY OF HEPATITS IN [place], NO SYMPTOMS SINCE Denies: Traveled Outside the [place] in Last 30 Days - Family History Known Family History: Positive: Other - breast CA Family History: FHx of breast CA - Sister - Social History Alcohol Use: Rare Alcohol Amount: 1 month Substance Use Type: Reports: None Smoking Status (MU): Never Smoked Tobacco Have You Smoked in the Last Year: No Review of Systems Constitutional: Negative Negative: Fever Positive: Drainage, Erythema ENT: Negative Cardiovascular: Negative Negative: Palpitations, Chest Pain Positive: Shortness Of Breath, Cough Gastrointestinal: Negative Negative: Abdominal Pain, Vomiting, Diarrhea Genitourinary: Negative Musculoskeletal: Negative Skin: Negative All Other Systems Reviewed And Are Negative: Yes Physical Exam Triage Information Reviewed: Yes Vital Signs On Initial Exam: Initial Vitals Temp Pulse Resp BP Pulse Ox 98.8 F 83 19 185/80 92 05/24/19 06:27 05/24/19 06:27 05/24/19 06:27 05/24/19 06:27 05/24/19 06:27 Vital Signs Reviewed: Yes Appearance: Positive: Well-Appearing - Pt. sitting up in bed in NAD. Answers questions appropriately. Daughter present. Skin: Positive: Warm, Dry Head/Face: Positive: Normal Head/Face Inspection Eyes: Positive: Normal, EOMI, NIKITA, Other: - Mild injection to left conjunctiva Neck: Positive: Supple Respiratory/Lung Sounds: Positive: Other - Moderate inspiratory/expiratory wheeze diffusely. No accessory muscle use, stidor, or retractions. Cardiovascular: Positive: Normal, RRR Musculoskeletal: Positive: Normal, Strength/ROM Intact. Negative: Edema Left, Edema Right Neurological: Positive: Normal, CN Intact II-III Psychiatric: Positive: Affect/Mood Appropriate Procedures - Sedation Patient Received Moderate/Deep Sedation with Procedure: No Diagnostics - Vital Signs Vital Signs Temp Pulse Resp BP Pulse Ox 05/24/19 07:03 76 20 165/80 99 05/24/19 07:00 75 18 98 05/24/19 06:31 81 21 95 05/24/19 06:27 98.8 F 83 19 185/80 92 - Laboratory Lab Results: Lab Results 05/24/19 05/24/19 05/24/19 Range/Units 06:52 06:52 06:52 WBC 5.2 (3.5-10.8) 10^3/uL RBC 4.84 (3.70-4.87) 10^6 /uL Hgb 14.9 (12.0-16.0) g/dL Hct 44 (35-47) % MCV 91 (80-97) fL MCH 31 (27-31) pg MCHC 34 (31-36) g/dL RDW 13 (10-15) % Plt Count 155 (150-450) 10^3/uL MPV 8.3 (7.4-10.4) fL Neut % (Auto) 68.7 % Lymph % (Auto) 15.8 % [place] % (Auto) 10.6 % Eos % (Auto) 4.0 % Baso % (Auto) 0.9 % Absolute Neuts (auto) 3.6 (1.5-7.7) 10^3/ul Absolute Lymphs (auto) 0.8 L (1.0-4.8) 10^3/ul Absolute Monos (auto) 0.5 (0-0.8) 10^3/ul Absolute Eos (auto) 0.2 (0-0.6) 10^3/ul Absolute Basos (auto) 0.0 (0-0.2) 10^3/ul Absolute Nucleated RBC 0.0 10^3/ul Nucleated RBC % 0.1 INR (Anticoag Therapy) (0.82-1.09) APTT (26.0-38.0) seconds Sodium 138 (135-145) mmol/L Potassium 4.0 (3.5-5.0) mmol/L Chloride 104 (101-111) mmol/L Carbon Dioxide 27 (22-32) mmol/L Anion Gap 7 (2-11) mmol/L BUN 10 (6-24) mg/dL Creatinine 0.61 (0.51-0.95) mg/dL Est GFR ( Amer) 115.1 (>60) Est GFR (Non-Af Amer) 95.1 (>60) BUN/Creatinine Ratio 16.4 (8-20) Glucose 174 H (70-100) mg/dL Lactic Acid 0.9 (0.5-2.0) mmol/L Calcium 8.4 L (8.6-10.3) mg/dL Total Bilirubin 0.60 (0.2-1.0) mg/dL AST 25 (13-39) U/L ALT 24 (7-52) U/L Alkaline Phosphatase 127 H (34-104) U/L Troponin I 0.00 (<0.03) ng/mL C-Reactive Protein 11.45 H (<8.01) mg/L Total Protein 6.2 L (6.4-8.9) g/dL Albumin 3.8 (3.2-5.2) g/dL Globulin 2.4 (2-4) g/dL Albumin/Globulin Ratio 1.6 (1-3) 03// Range/Units 06:52 WBC (3.5-10.8) 10^3/uL RBC (3.70-4.87) 10^6 /uL Hgb (12.0-16.0) g/dL Hct (35-47) % MCV (80-97) fL MCH (27-31) pg MCHC (31-36) g/dL RDW (10-15) % Plt Count (150-450) 10^3/uL MPV (7.4-10.4) fL Neut % (Auto) % Lymph % (Auto) % [place] % (Auto) % Eos % (Auto) % Baso % (Auto) % Absolute Neuts (auto) (1.5-7.7) 10^3/ul Absolute Lymphs (auto) (1.0-4.8) 10^3/ul Absolute Monos (auto) (0-0.8) 10^3/ul Absolute Eos (auto) (0-0.6) 10^3/ul Absolute Basos (auto) (0-0.2) 10^3/ul Absolute Nucleated RBC 10^3/ul Nucleated RBC % INR (Anticoag Therapy) 1.03 (0.82-1.09) APTT 36.0 (26.0-38.0) seconds Sodium (135-145) mmol/L Potassium (3.5-5.0) mmol/L Chloride (101-111) mmol/L Carbon Dioxide (22-32) mmol/L Anion Gap (2-11) mmol/L BUN (6-24) mg/dL Creatinine (0.51-0.95) mg/dL Est GFR ( Amer) (>60) Est GFR (Non-Af Amer) (>60) BUN/Creatinine Ratio (8-20) Glucose (70-100) mg/dL Lactic Acid (0.5-2.0) mmol/L Calcium (8.6-10.3) mg/dL Total Bilirubin (0.2-1.0) mg/dL AST (13-39) U/L ALT (7-52) U/L Alkaline Phosphatase (34-104) U/L Troponin I (<0.03) ng/mL C-Reactive Protein (<8.01) mg/L Total Protein (6.4-8.9) g/dL Albumin (3.2-5.2) g/dL Globulin (2-4) g/dL Albumin/Globulin Ratio (1-3) Result Diagrams: 05/24/19 06:52 05/24/19 06:52 Lab Statement: Any lab studies that have been ordered have been reviewed, and results considered in the medical decision making process. Disposition - Course Course Of Treatment: Pt. with productive cough and wheeze. Afebrile. O2 in low 90's on 2L NC. Pt. given breathing treatment. Labs unremarkable. Negative influenza. ECG done at 0637 shows a sinus rhtyhm of 79bpm, normal axis, RBBB, no STEMI. Chest xray negative for acute findings per radiology. Pt. given second breathing treatment and O2 saturation dropping into mid 80's on RA. Placed back onto O2. Hospitalist contacted for admission. Case discussed with Dr. Combs who will accept pt. for admission. Pt. clinically looks like pneumonia, started on IV zithromax and rocephin. - Differential Dx - Cardiopulmonary Differential Diagnoses - Cardiopulmonary: Aspiration, CAD, CHF, Influenza, Pulmonary Embolism - Diagnoses Provider Diagnoses: Hypoxia, Productive cough Discharge ED - Sign-Out/Discharge Documenting (check all that apply): Patient Departure - Discharge Plan Condition: Stable Disposition: ADMITTED TO [facility] Referrals: Alex Banks MD [Primary Care Provider] - - Billing Disposition and Condition Condition: STABLE Disposition: Admitted to [facility]
[2019-05-24] MEDS ORDERED: Albuterol/Ipratropium NEB.SOL* Albuterol 2.5 MG/Ipratropium 0.5 MG 3 ML INH ONE (08:31)
[2019-05-24 09:12] LABS: Influenza A Molecular Negative (Negative); Influenza B Molecular Negative (Negative)
[2019-05-24] MEDS ORDERED: Azithromycin 500 mg/250 ml NS 500 MG/250 ML BAG IVPB ONE (09:15)
[2019-05-24] MEDS ORDERED: cefTRIAXone(*) 1 GM in NS 0.9% 50 ML* 50 ML IVPB ONE (09:15)
[2019-05-24] MEDS ORDERED: Albuterol 2.5 MG/3 ML NEB.SOL* (0.083%) INH PRN (10:49)
[2019-05-24] MEDS ORDERED: Iodixanol* (CONTRAST) 320 MG/ML 100 ML SDV IV ONE (11:05)
[2019-05-24] MEDS ORDERED: Dextrose 50% Syringe 50 ML* 25 GM/50 ML SYRINGE IV PUSH PRN (11:43)
[2019-05-24] MEDS: Enoxaparin(*) 40 MG/0.4 ML SYR SUBCUT SCH (12:20)
--- NOTE | 2019-05-24 13:30 | HP ---
CC: Dr. Banks* HISTORY AND PHYSICAL: DATE OF ADMISSION: 05/24/19 PROVIDER: Marizol Wallace NP. PRIMARY CARE PROVIDER: Dr. Banks. ATTENDING PHYSICIAN WHILE IN THE HOSPITAL: Dr. Sloane Combs* (dictated by Marizol Wallace NP). CHIEF COMPLAINT: Cough. HISTORY OF PRESENT ILLNESS: Ms. Dunbar is a 78-year-old female with past medical history significant for insulin-dependent diabetes, hypertension, hyperlipidemia, morbid obesity, anxiety, history of right breast cancer, who presented to the emergency room with complaints of progressively worsening cough. The patient reports that her cough started approximately 9 to 10 days ago, and over the past 10 days, her cough has become progressively worse. She does report that today her cough is more productive with yellow sputum. The patient denies any fever or chills. Denies any unintended weight loss. Denies any chest pain or edema. She denies any hemoptysis. She denies shortness of breath. She denies any nausea, vomiting, diarrhea, or abdominal pain. She denies any gross hematuria or dysuria. She denies any difficulty swallowing, visual changes, arthralgias, myalgias, rashes, lesions, open sores, psychosis, or anxiety. The patient does report that over the past 10 days she did experience a fall approximately 4 days ago. At that time, she hit her left shoulder. She does have mild ecchymosis noted to the left shoulder. She also reports that her door hit her, closed on her right lower leg approximately 4 days ago for which she had ecchymosis and swelling to the right leg. She denies any calf tenderness. She denies any pain in the legs. While in the emergency room, she was found to be hypoxic with oxygen saturation of 85%. The patient had a chest x-ray that showed no active cardiopulmonary disease. Due to the patient's hypoxia and persistent cough, Hospital Medicine was asked to see and evaluate her for admission. PAST MEDICAL HISTORY: Significant for: 1. Right breast cancer. 2. Insulin-dependent diabetes. 3. Hypertension. 4. Hyperlipidemia. 5. Morbid obesity. 6. Anxiety. PAST SURGICAL HISTORY: 1. Right mastectomy. 2. Cholecystectomy. 3. Appendectomy. 4. Hysterectomy. 5. Cataract surgery. HOME MEDICATIONS: Include: 1. Lisinopril 50 mg p.o. daily. 2. Vitamin D 1000 units p.o. daily. 3. Ascorbic acid. 4. Vitamin C 500 mg p.o. daily. 5. Vitamin B12 500 mcg p.o. daily. 6. Probiotic 1 tablet p.o. daily. 7. NovoLog FlexPen 15 units with meals. 8. Mirabegron 25 mg p.o. b.i.d. 9. Xyzal 5 mg p.o. daily. 10. Jardiance 25 mg p.o. daily. 11. Lexapro 20 mg p.o. daily. 12. Cranberry 450 mg p.o. daily. 13. Clonazepam 0.5 mg p.o. daily p.r.n. anxiety. 14. Clonazepam 1 mg p.o. at bedtime p.r.n. 15. Calcium Antacid chews 3 tablets at bedtime. 16. Bupropion 300 mg p.o. daily. 17. Glargine insulin 50 units subcu b.i.d. 18. Biotin 2500 mg daily. 19. Atorvastatin 40 mg p.o. daily. 20. Apple cider vinegar 300 mg p.o. daily. 21. Atenolol 100 mg p.o. daily. 22. Arimidex 1 mg p.o. daily. 23. Amlodipine 10 mg p.o. daily. 24. Naproxen sodium and diphenhydramine - Aleve PM 1 tablet at bedtime p.r.n. ALLERGIES: PEANUTS, SOLITARIO NUTS, IPRATROPIUM, , RAW POTATOES, CARROTS, APPLE, CELERY, and SOY. FAMILY HISTORY: Father with a history of an AZ, at the age of 65. Mother with a history of an AZ, at the age of 70. Mother with diabetes. Mother with unknown type cancer. SOCIAL HISTORY: She denies any tobacco use. She does report occasional alcohol use. Denies any illicit drug use. She lives alone. Surrogate decision maker in the event she is unable to make her own decisions is her daughter. She wishes to be a do not resuscitate. She reports she walks with a cane. REVIEW OF SYSTEMS: Eleven point review of systems was completed. All pertinent positives are mentioned in the HPI, otherwise were negative. PHYSICAL EXAMINATION GENERAL: At this time, Ms. Dunbar is a 78-year-old female. She is alert and oriented, resting on the stretcher in the emergency room. She is not in any acute distress. VITAL SIGNS: Blood pressure 143/61, heart rate 83, respirations 23, O2 saturation 95%, temperature was 99.4 HEENT: Head is atraumatic, normocephalic. Eyes: EOMs are intact. Sclerae anicteric and not pale. Oral mucosa is moist. NECK: Supple. LUNGS: With scattered rhonchi bilaterally. Few scattered expiratory wheezes. CARDIAC: S1, S2. Regular rate and rhythm. No murmurs, rubs, or gallops. ABDOMEN: Obese, soft, nontender. Bowel sounds are present x4. EXTREMITIES: She is able to move all 4 extremities. There is no clubbing or cyanosis. She does have ecchymosis noted to her right tolbert with surrounding erythema noted to the right lower leg. NEUROLOGIC: She is awake, alert, oriented x3. Speech is clear. Thought process is intact. There is no gross focal deficit. SKIN: Her left shoulder and right lower leg, she does have ecchymosis with surrounding erythema. It is warm to touch. LABORATORY DATA/DIAGNOSTIC STUDIES: WBCs are 5.2, RBCs 4.84, hemoglobin 14.9, hematocrit is 44, platelet count is 155. INR is 1.03. Sodium is 138, potassium 4.0, chloride 104, carbon dioxide is 27, anion gap is 7, BUN is 10, creatinine 0.61, glucose is 174, lactic acid 0.9, calcium is 8.4, AST is 25, ALT is 24, alkaline phosphatase is 127. C-reactive protein was 11.45. BNP is 86. Flu A and B were both negative. Chest x-ray, radiologist impression: No active cardiopulmonary disease. She had an electrocardiogram which showed sinus rhythm at a rate of 79, right bundle-branch block. ASSESSMENT AND PLAN: Ms. Dunbar is a 78-year-old female with past medical history significant for insulin-dependent diabetes, hypertension, hyperlipidemia , morbid obesity, anxiety, and history of right breast cancer, status post mastectomy, who presented to the emergency room with complaints of cough, was found to be hypoxic with room air saturations of 85%. Due to these findings, Hospital Medicine was asked to evaluate her for admission. She will be admitted under observation for: 1. Cough. I suspect that her cough could be related to possible underlying pneumonia versus bronchitis. Her chest x-ray currently shows no evidence of pneumonia. The patient does have a harsh moist cough that is productive with yellow sputum. At this time, I am going to proceed with getting a CT of the chest. Due top the patient's history of progressive worsening cough for 10 days , I am going to treat her for pneumonia. We will give her ceftriaxone and doxycycline. She will also have a flutter valve and she can have albuterol nebulizer as needed for shortness of breath and wheezing. 2. Hypoxia. The patient was hypoxic with O2 saturations of 85% on room air. The patient has no clear evidence of pneumonia at this time. I am going to get a CTA of the chest to rule out pulmonary embolism as the patient is hypoxic and the only complaint is cough. Given the patient's history of recent right lower leg trauma and her hypoxia, I think it is prudent to get a CTA of the chest to rule out pulmonary embolism. 3. Type 2 diabetes, insulin dependent. The patient will continue on glargine 50 units subcu twice daily. I will put her on lispro sliding scale and she will have fingersticks a.c. and h.s. 4. Hypertension. She should continue on lisinopril, amlodipine, and Tenormin as previously prescribed. 5. Hyperlipidemia. She will continue on atorvastatin as previously prescribed. 6. Anxiety. She can take clonazepam as previously prescribed. 7. Anxiety, depression. She should continue on Lexapro and Wellbutrin as previously prescribed. 8. FEN: She can have a consistent carb diet. 9. Code status: She wishes to be a DNR. 10. DVT prophylaxis: I will place her on Lovenox subcu. The patient is at a high risk. I am not going to place her on SCDs as the patient does have a small hematoma noted to her right tolbert and possible early underlying cellulitis to the right lower leg. 11. Right lower leg cellulitis. The patient does have redness and warmth to the right lower leg with ecchymosis noted to the tolbert. We will continue to cover with ceftriaxone. TIME SPENT: Time spent on this admission was 60 minutes, greater than half that time was spent at the bedside reviewing the events leading thus far to her hospitalization, performing physical exam, and reviewing my plan of care. I have discussed this with my attending Dr. Sloane Combs; she is in agreement with my plan. MARIZOL WALLACE, FACTORY SUPERVISOR [id number]/[facility] #: [id number] LEEANN
[2019-05-24] MEDS: NS 0.9% 1000 ML** 1,000 ML IV SCH (14:00)
[2019-05-24 15:35] LABS: Urine Appearance Cloudy; Urine Bilirubin Negative (Negative); Urine Blood Negative (Negative); Urine Color Yellow; Urine Glucose 3+(>=500 mg/dL) (Negative); Urine Ketones Trace (Negative); Urine Nitrite Positive (Negative); Urine Protein Negative (Negative); Urine Specific Gravity 1.025 (1.010-1.030); Urine Urobilinogen Negative (Negative)
[2019-05-24 15:38] LABS: Urine Bacteria 2+ (Absent); Urine Red Blood Cell 2+(6-10/hpf) (Absent); Urine Squamous Epithelial Cell Present (Absent); Urine White Blood Cell 3+(>20/hpf) (Absent)
[2019-05-24] MEDS: Insulin LISPRO* 1 UNITS UNIT SUBCUT SCH (18:04)
[2019-05-24] MEDS: Mirabegron (NF) 25 MG TAB PO SCH ×2 (19:45→19:57)
[2019-05-24] MEDS: MAGNESIUM HYDROXIDE PO SCH (19:57)
[2019-05-24] MEDS: CALCIUM CARBONATE PO SCH (19:57)
[2019-05-24] MEDS: Acetaminophen TAB* 325 MG PO PRN (19:59)
[2019-05-24] MEDS: Benzonatate CAP* 100 MG PO PRN (19:59)
[2019-05-24] MEDS ORDERED: Insulin GLARGINE(*) 1 UNITS UNIT SUBCUT SCH (21:00)
[2019-05-25] MEDS: clonazePAM TAB(*) 1 MG PO PRN ×2 (02:50→09:54)
[2019-05-25] MEDS: NS 0.9% 1000 ML** 1,000 ML IV SCH (07:27)
[2019-05-25] MEDS: Insulin LISPRO* 1 UNITS UNIT SUBCUT SCH ×3 (07:29→16:48)
--- NOTE | 2019-05-25 08:21 | PN ---
Subjective - Subjective Reason for Note: Progress Note History: I reviewed Regis Dunbar's presentation with the patient and with MICHELLE Borja's admitting history and physical. She had a fall 4 days ago and separately closed the car door on her right lower leg without an open wound and injured her right lower leg that has become swollen and painful. She developed a productive cough and then progressive dyspnea and hence presented to the hospital. Her O2 saturation on room air has been around 85%. This morning she continues to have a severe paroxysmal cough that is productive. She has no chest pain, palpitations and no dyspnea at rest. She has not had a fever. Active Problems: Active Problems Acute bronchitis (Acute) J20.9 Cellulitis of right lower leg (Acute) L03.115 Fall (Acute) Respiratory failure with hypoxia (Acute) J96.91 Type 2 diabetes mellitus with hyperglycemia (Acute) E11.65 UTI (urinary tract infection) (Acute) Depression (Chronic) F32.9 Diabetic peripheral neuropathy (Chronic) E11.42 Essential hypertension (Chronic) I10 History of breast cancer (Chronic) Z85.3 Hyperlipidemia (Chronic) E78.5 Morbid obesity (Chronic) E66.01 Non-proliferative diabetic retinopathy (Chronic) E11.3299 SID (obstructive sleep apnea) (Chronic) G47.33 Right bundle branch block (Chronic) I45.10 Current Medications: Current Medications Acetaminophen (Tylenol Tab*) 650 mg PO Q6H PRN PRN Reason: MILD PAIN or TEMP > 100.4 Last Admin: 05/24/19 19:59 Dose: 650 mg Albuterol (Ventolin 2.5 Mg/3 Ml Neb.Katiana*) 2.5 mg INH Q4H PRN PRN Reason: SOB/WHEEZING Amlodipine Besylate (Norvasc Tab*) 10 mg PO DAILY STEPHEN Anastrozole (Arimidex (Nf)) 1 mg PO DAILY [facility]PH[facility] Ascorbic Acid (Vitamin C Tab*) 500 mg PO DAILY [facility]PH[facility] Atorvastatin Calcium (Lipitor*) 40 mg PO DAILY STEPHEN Benzonatate (Tessalon Cap*) 100 mg PO BID PRN PRN Reason: COUGH Last Admin: 05/24/19 19:59 Dose: 100 mg Bupropion HCl (Bupropion Xl*) 300 mg PO QAM [facility] Cholecalciferol (Vitamin D Tab*) 1,000 units PO DAILY STEPHEN Clonazepam (Klonopin Tab(*)) 0.25 mg PO DAILY PRN PRN Reason: ANXIETY Clonazepam (Klonopin Tab(*)) 1 mg PO BEDTIME PRN PRN Reason: ANXIETY Last Admin: 05/25/19 02:50 Dose: 1 mg Dextrose (D50w Syringe 50 Ml*) 12.5 gm IV PUSH .FOR FS < 60 - SS PRN PRN Reason: FS < 60 Enoxaparin Sodium (Lovenox(*)) 40 mg SUBCUT Q24H [facility] Last Admin: 05/24/19 12:20 Dose: 40 mg Escitalopram Oxalate (Lexapro *) 20 mg PO DAILY [facility] Sodium Chloride (Ns 0.9% 1000 Ml) 1,000 mls @ 75 mls/hr IV PER RATE [facility] Last Admin: 05/25/19 07:27 Dose: 75 mls/hr Doxycycline Hyclate 100 mg/ (Sodium Chloride) 250 mls @ 250 mls/hr IVPB Q12H [facility] Ceftriaxone Sodium 1 gm/ (Sodium Chloride) 50 mls @ 100 mls/hr IVPB Q24H [facility] Insulin Glargine (Lantus(*)) 40 units SUBCUT BID [facility] Last Admin: 05/24/19 20:01 Dose: 40 units Insulin Human Lispro (Humalog*) 0 units SUBCUT AC [facility]; Protocol Last Admin: 05/25/19 07:29 Dose: Not Given Lisinopril (Prinivil Tab*) 40 mg PO DAILY [facility] Mirabegron (Myrbetriq (Nf)) 25 mg PO BID [facility] Last Admin: 05/24/19 19:57 Dose: Not Given Nft: Calcium Carb/Magnesium Hydrox [ Antacid 1000-200 Mg Tab Chew] 3 Each) 3 each PO BEDTIME [facility] Last Admin: 05/24/19 19:57 Dose: Not Given - Review of Systems Constitutional Symptoms: Yes: Fatigue, Unexplained Falls, No: Fever Pulmonary: Positive: Cough, Sputum, Respiratory Distress, Shortness of Breath Negative: Hemoptysis Cardiology: Positive: Shortness of Breath, Swelling of Ankles Negative: Chest Pain, Palpitations Gastroenterology: Negative: Abdominal Pain, Nausea, Vomiting, Change in Bowel Habits Genital - Urinary: Positive: Hematuria Negative: Dysuria Home Medications: Home Medications Medication Instructions Recorded Confirmed Type Ascorbic Acid TAB* [Vitamin C 500 mg PO DAILY 07/03/14 05/24/19 History TAB*] Atorvastatin* [Lipitor 40 MG*] 40 mg PO DAILY 07/03/14 05/24/19 History Biotin 2,500 mg SL DAILY 07/03/14 05/24/19 History Bupropion XL (NF) [Wellbutrin XL 300 mg PO QAM 07/03/14 05/24/19 History 300 MG (NF)] Cholecalciferol (Vitamin D3) 1,000 unit PO DAILY 07/03/14 05/24/19 History [Vitamin D3] Insulin Aspart [Novolog Flexpen] 14 - 16 units SUBCUT TID WITH 07/03/14 History MEALS MDD 60u clonazePAM TAB(*) [Klonopin TAB(*)] 0.5 tab PO DAILY PRN MDD 3 tabs 07/03/1407/09 History clonazePAM TAB(*) [Klonopin TAB(*)] 1 mg PO BEDTIME PRN MDD 3 tabs 07/03/1407/09 History Atenolol [Tenormin 100 MG] 100 mg PO DAILY 06/11/17 05/24/19 History amLODIPine TAB* [Norvasc 5 mg TAB*] 10 mg PO DAILY 06/11/17 05/24/19 History lisinopriL [Lisinopril] 50 mg PO DAILY 06/11/17 05/24/19 History Anastrozole (NF) [Arimidex (NF)] 1 mg PO DAILY 05/24/19 05/24/19 History Calcium Carb/Magnesium Hydrox 3 each PO BEDTIME 05/24/19 05/24/19 History [Antacid 1000-200 mg Tab Chew] Cider Vinegar [Apple Cider Vinegar] 300 mg PO DAILY 05/24/19 05/24/19 History Cranberry Fruit [Cranberry] 450 mg PO DAILY 05/24/19 05/24/19 History Cyanocobalamin TAB* [Vitamin B12 500 mcg PO DAILY 05/24/19 05/24/19 History TAB*] Empaglifozin (NF) [Jardiance] 25 mg PO DAILY 05/24/19 05/24/19 History Escitalopram * [Lexapro *] 20 mg PO DAILY 05/24/19 05/24/19 History Insulin Glargine,Hum.rec.anlog 50 units SUBCUT BID MDD 90u 05/24/19 05/24/19 History [Basaglar Kwikpen 100 inuts/ml 3 ml x 5 Pens] L.acidoph,Paracasei, B.lactis 1 each PO DAILY 05/24/19 05/24/19 History [Probiotic] LevoCETirizine TAB (NF) [Xyzal TAB 5 mg PO DAILY 05/24/19 05/24/19 History (NF)] Mirabegron (NF) [Myrbetriq (NF)] 25 mg PO BID 05/24/19 05/24/19 History Naproxen Sod/Diphenhydramine 1 tab PO BEDTIME 05/24/19 05/24/19 History [Aleve PM 220-25 mg] Allergies: Allergies Allergy/AdvReac Type Severity Reaction Status Date / Time peanut Allergy Severe severe Verified 05/24/19 06:29 headache hazelnut Allergy Headache Verified 05/24/19 06:29 ipratropium AdvReac Severe makes nose Verified 05/24/19 06:29 bleed locust Allergy Severe severe Uncoded 05/24/19 06:29 headache ENVIRONMENTAL Allergy Intermediate SEASONAL Uncoded 05/24/19 06:29 lecithin Allergy Intermediate See Comment Uncoded 05/24/19 06:29 raw potato, carrot, apples, Allergy Headache Uncoded 05/24/19 06:29 celery soy AdvReac Severe Headache Uncoded 05/24/19 06:29 Objective - Vital Signs Vital Signs: Vital Signs 05/24/19 05/24/19 05/24/19 08:39 08:40 09:00 Temperature Pulse Rate 75 76 Respiratory 12 22 Rate Blood Pressure 129/72 (mmHg) O2 Sat by Pulse 92 94 94 Oximetry 05/24/19 05/24/19 05/24/19 09:01 09:03 10:00 Temperature Pulse Rate 75 77 84 Respiratory 14 16 26 Rate Blood Pressure 144/66 (mmHg) O2 Sat by Pulse 95 95 94 Oximetry 05/24/19 05/24/19 05/24/19 10:03 11:14 11:24 Temperature 99.4 F 99.4 F 98.5 F Pulse Rate 86 86 83 Respiratory 23 24 18 Rate Blood Pressure 143/61 143/61 143/72 (mmHg) O2 Sat by Pulse 95 95 99 Oximetry 05/24/19 05/24/19 05/24/19 14:45 15:15 17:34 Temperature 99.0 F 98 F Pulse Rate 78 81 Respiratory 16 16 Rate Blood Pressure 139/63 164/58 157/71 (mmHg) O2 Sat by Pulse 96 97 Oximetry 05/24/19 05/24/19 05/25/19 19:33 22:45 02:42 Temperature 99.9 F 99.2 F 97.4 F Pulse Rate 82 72 72 Respiratory 20 18 18 Rate Blood Pressure 160/67 153/67 154/75 (mmHg) O2 Sat by Pulse 99 97 100 Oximetry 05/25/19 05/25/19 02:50 06:01 Temperature Pulse Rate Respiratory 20 18 Rate Blood Pressure (mmHg) O2 Sat by Pulse Oximetry - Intake and Output Intake and Output: Intake & Output 05/22/19 05/23/19 05/24/19 05/25/19 11:59 11:59 11:59 11:59 Intake Total 1050 3055 Balance 1050 3055 Weight 223 lb 4.8 oz Intake: IV Fluids 1050 1855 NS (0.9%) 855 Oral 1200 Other: Estimated Void Large # Voids 0 ADLs: Meal Record Start: 05/24/19 11: 24 Freq: DAILY@0900,1400,1800 Status: Active Protocol: Created 05/24/19 11:24 System (Rec: 05/24/19 11:24 System MED-C09) Document 05/24/19 14:00 [id number] (Rec: 05/24/19 14:41 [id number] MED-C11) Document 05/24/19 18:00 [id number] (Rec: 05/24/19 18:55 [id number] MED-C09) Intake and Output Start: 05/24/19 06: 28 Freq: Status: Active Protocol: Created 05/24/19 06:28 System (Rec: 05/24/19 06:28 System [id number]) Intake and Output Start: 05/24/19 11: 24 Freq: DAILY@0600,1400,2200 Status: Active Protocol: Created 05/24/19 11:24 System (Rec: 05/24/19 11:24 System MED-C09) Document 05/24/19 14:00 [id number] (Rec: 05/24/19 14:25 [id number] MED-C09) Document 05/24/19 22:00 [id number] (Rec: 05/24/19 22:21 [id number] [facility]-C09) Document 05/25/19 05:28 [id number] (Rec: 05/25/19 05:29 [id number] [facility]-C11) - Physical Exam General Physical Exam Comment: She has a productive, paroxysmal cough. She has swelling of her left eye lower eye lid with mild erythemsa. Right lower leg has cellulitis - this is warm and red. There is no break in the skin. General: No Cyanosis, No Anemia, No Jaundice, No Clubbing Endocrine: Yes Central Obesity, No Acromegaly, No Vitiligo, No Flushing, No Acanthosis nigricans, No Violaceious striae, No [place] Syndrome Lungs and Chest: Yes: Chest Expansion Full, Chest Expansion Symetrica, Percussion Note Resonant, Crackles, Wheezes, Respiratory Distress. No: Vessicular Breath Sounds, Use of Accessory Muscles Heart Rate and Rhythm: Regular Additional Cardiovascular: Yes: Normal Heart Sounds, Pedal Edema - trace. No: Heart Murmur Abdominal Exam: Yes: Soft, Bowel Sounds Present. No: Distention, Abdominal Tenderness - Extremities Cranial Nerves II-XII Intact: Yes Limbs: Normal Power, Normal Tone - Neuro Orientation: A/O x3 Psychiatric: Anxious Speech: Normal Results - Results Lab Results: Laboratory Results - last 24 hr 05/24/19 05/24/19 05/24/19 06:52 08:44 14:30 POC Glucose (mg/dL) B-Natriuretic Peptide 86 Urine Color Yellow Urine Appearance Cloudy Urine pH 6.0 Ur Specific Boyce 1.025 Urine Protein Negative Urine Ketones Trace A Urine Blood Negative Urine Nitrate Positive A Urine Bilirubin Negative Urine Urobilinogen Negative Ur Leukocyte Esterase Trace A Urine WBC (Auto) 3+(>20/hpf) A Urine RBC (Auto) 2+(6-10/hpf) A Ur Squamous Epith Cells Present A Urine Bacteria 2+ A Urine Glucose 3+(>=500 mg/dl) A Urine Ascorbic Acid * A Influenza A (Rapid) Negative Influenza B (Rapid) Negative 05/24/19 05/24/19 05/25/19 17:04 19:57 07:28 POC Glucose (mg/dL) 278 H 254 H 123 H B-Natriuretic Peptide Urine Color Urine Appearance Urine pH Ur Specific Boyce Urine Protein Urine Ketones Urine Blood Urine Nitrate Urine Bilirubin Urine Urobilinogen Ur Leukocyte Esterase Urine WBC (Auto) Urine RBC (Auto) Ur Squamous Epith Cells Urine Bacteria Urine Glucose Urine Ascorbic Acid Influenza A (Rapid) Influenza B (Rapid) Radiology Results: Patient Name: REGIS DUNBAR Medical Record#: [id number] Ordering Physician: Marizol Wallace NP Acct.#: [id number] : 1940 Age: 78 Sex: F Location: [address] [place] [address] Exam Date: 05/24/19 1043 ADM Status: ADM Tashia Order Information: CTA CHEST Accession Number: [id number] CPT: 46990 Indication: Hypoxia, cough. Contrast: Administered 91.0 ml of Contrast -- mg/ml CTA of the chest performed after IV contrast administration. Coronal and sagittal reconstructed images were obtained. The pulmonary arterial tree is well opacified. There are no filling defects present to suggest pulmonary embolus. The thoracic aorta demonstrates no evidence of aortic dissection or aneurysmal dilatation. There is small 3 mm pretracheal lymph nodes noted. No other hilar lymph nodes are noted. The heart demonstrates no pericardial effusion. Coronary artery calcifications are present. The lung kent demonstrate some atelectasis in the lingula. No evidence of alveolar consolidation is noted. No pneumothorax is noted. The visualized abdominal organs are grossly unremarkable. The bony structures are otherwise unremarkable. IMPRESSION: No definite pulmonary embolus is noted. No evidence of thoracic aortic dissection or aneurysmal dilatation. <Electronically signed by Lou Oro MD in [place]> 05/24/19 1435 Dictated By: Lou Oro MD Dictated Date/Time: 05/24/19 143 Transcribed Date/Time: 05/24/19 143 Copy to: Patient Name: REGIS DUNBAR Medical Record#: [id number] Ordering Physician: Nishant MARTINEZ Acct.#: [id number] : 1940 Age: 78 Sex: F Location: EMERGENCY DEPARTMENT Exam Date: 05/24/19 0631 ADM Status: REG ER Order Information: CHEST AP/PORT Accession Number: [id number] CPT: 16593 HISTORY: cough COMPARISONS: March 14, 2018 VIEWS: 1: frontal AP view of the chest at 6:35 AM FINDINGS: LINES AND TUBES: None. CARDIOMEDIASTINAL SILHOUETTE: The cardiomediastinal silhouette is normal for portable technique. PLEURA: The costophrenic angles are sharp. No pleural abnormalities are noted. LUNG PARENCHYMA: The lungs are clear. ABDOMEN: The upper abdomen is clear. There is no subphrenic gas. BONES AND SOFT TISSUES: No bone or soft tissue abnormalities are noted. Surgical clips in the right axilla IMPRESSION: NO ACTIVE CARDIOPULMONARY DISEASE. R1NF Preliminary Imaging Read R1NF <Electronically signed by Abdirizak Whitney MD in [place]> 05/24/19819 Dictated By: Abdirizak Whitney MD Dictated Date/Time: 05/24/19819 Transcribed Date/Time: 05/24/19819 Copy to: EKG Report: sinus rhythm 79 KS 203 Qtc 481 QRS axis - 22 Right bundle branch block and first degree AV block Assessment - Problem List Assessment: Patient Problems Acute bronchitis (Acute) Cellulitis of right lower leg (Acute) Fall (Acute) Respiratory failure with hypoxia (Acute) Type 2 diabetes mellitus with hyperglycemia (Acute) UTI (urinary tract infection) (Acute) Depression (Chronic) Diabetic peripheral neuropathy (Chronic) Essential hypertension (Chronic) History of breast cancer (Chronic) Hyperlipidemia (Chronic) Morbid obesity (Chronic) Non-proliferative diabetic retinopathy (Chronic) SID (obstructive sleep apnea) (Chronic) Right bundle branch block (Chronic) Plan: Acute bronchitis (Acute) Respiratory failure with hypoxia (Acute) She has a marked productive cough with expiratory wheezes. I will check ABGs off oxygen to determine if there is CO2 retention. I will start her on prednisone. I note her WBC, %neut and CRP are not elevated and there are no signs of pneumonia on th CXR or CT scan. We have ruled out heart failure, pulmonary embolism and myocardial ischemia. She requires respiratory therapy and bronchodilators via nebuliser Cellulitis of right lower leg (Acute) She injured her right lower leg 4 days ago with her car door. She has cellulitis. I will increase her ceftriaxone to 2 grams daily. UTI - the ceftriaxone will cover this. Comorbidities: Fall (Acute) She has multiple falls and is at high risk Type 2 diabetes mellitus with hyperglycemia (Acute) Her most recent A1c was 10.3%. I will increase her insulin in anticipation of the prednisone. Her glucose this morning is on target - suggesting compliance is an issue at home Secondary diagnoses: Depression (Chronic) Diabetic peripheral neuropathy (Chronic) Essential hypertension (Chronic) History of breast cancer (Chronic) Hyperlipidemia (Chronic) Morbid obesity (Chronic) Non-proliferative diabetic retinopathy (Chronic) SID (obstructive sleep apnea) (Chronic) Right bundle branch block (Chronic) I spoke to Regis Dunbar and to her daughter Cesilia Fleming. Regis would like to go home. I explained that with 3 infections and evidence of respiratory failure with no O2 at home she would come right back into the hospital - she accepts she needs to be here.
[2019-05-25] MEDS: Escitalopram * 20 MG TABLET PO SCH (09:54)
[2019-05-25] MEDS: Lisinopril TAB* 10 MG PO SCH (09:54)
[2019-05-25] MEDS: Atorvastatin* 40 MG TAB PO SCH (09:54)
[2019-05-25] MEDS: BuPROPion XL* 300 MG TAB.XL PO SCH (09:54)
[2019-05-25] MEDS: amLODIPine TAB* 5 MG PO SCH (09:54)
[2019-05-25] MEDS: Cholecalciferol TAB* 1000 UNITS PO SCH (09:54)
[2019-05-25] MEDS: Ascorbic Acid TAB* 500 MG PO SCH (09:55)
[2019-05-25] MEDS: CMCS: Anastrozole (NF) 1 MG TAB PO SCH (09:55)
[2019-05-25] MEDS: Insulin GLARGINE(*) 1 UNITS UNIT SUBCUT SCH ×2 (09:55→20:44)
[2019-05-25] MEDS: Mirabegron (NF) 25 MG TAB PO SCH ×2 (09:55→20:34)
[2019-05-25] MEDS ORDERED: cefTRIAXone(*) 1 GM in NS 0.9% 50 ML* 50 ML IVPB SCH (10:00)
[2019-05-25] MEDS: Enoxaparin(*) 40 MG/0.4 ML SYR SUBCUT SCH (10:01)
[2019-05-25] MEDS: cefTRIAXone(*) 2 GM in NS 0.9% 50 ML* 50 ML IVPB SCH ×2 (10:44→13:54)
[2019-05-25] MEDS: DOXYcycline IV* 100 MG in NS 0.9% 250 ML* 250 ML IVPB SCH ×2 (10:44→22:39)
[2019-05-25] MEDS: MAGNESIUM HYDROXIDE PO SCH (20:34)
[2019-05-25] MEDS: CALCIUM CARBONATE PO SCH (20:34)
[2019-05-25] MEDS: Benzonatate CAP* 100 MG PO PRN (20:42)
[2019-05-25] MEDS: Acetaminophen TAB* 325 MG PO PRN (20:42)
[2019-05-26] MEDS: clonazePAM TAB(*) 1 MG PO PRN ×2 (00:47→20:55)
--- NOTE | 2019-05-26 08:11 | PN ---
Subjective - Subjective Reason for Note: Progress Note History: She is less short of breath and coughing less. She managed to walk around the vigil yesterday. She is tolerating the antibacterials. She is keeping he legs elevated for her cellulitis. Her glucose levels are higher owing to the prednisone Active Problems: Active Problems Acute bronchitis (Acute) J20.9 Cellulitis of right lower leg (Acute) L03.115 Fall (Acute) Respiratory failure with hypoxia (Acute) J96.91 Type 2 diabetes mellitus with hyperglycemia (Acute) E11.65 UTI (urinary tract infection) (Acute) Depression (Chronic) F32.9 Diabetic peripheral neuropathy (Chronic) E11.42 Essential hypertension (Chronic) I10 History of breast cancer (Chronic) Z85.3 Hyperlipidemia (Chronic) E78.5 Morbid obesity (Chronic) E66.01 Non-proliferative diabetic retinopathy (Chronic) E11.3299 SID (obstructive sleep apnea) (Chronic) G47.33 Right bundle branch block (Chronic) I45.10 Current Medications: Current Medications Acetaminophen (Tylenol Tab*) 650 mg PO Q6H PRN PRN Reason: MILD PAIN or TEMP > 100.4 Last Admin: 05/25/19 20:42 Dose: 650 mg Albuterol (Ventolin 2.5 Mg/3 Ml Neb.Katiana*) 2.5 mg INH Q4H PRN PRN Reason: SOB/WHEEZING Amlodipine Besylate (Norvasc Tab*) 10 mg PO DAILY [facility] Last Admin: 05/25/19 09:54 Dose: 10 mg Anastrozole (Arimidex (Nf)) 1 mg PO DAILY [facility] Last Admin: 05/25/19 09:55 Dose: 1 mg Ascorbic Acid (Vitamin C Tab*) 500 mg PO DAILY [facility] Last Admin: 05/25/19 09:55 Dose: 500 mg Atorvastatin Calcium (Lipitor*) 40 mg PO DAILY [facility] Last Admin: 05/25/19 09:54 Dose: 40 mg Benzonatate (Tessalon Cap*) 100 mg PO BID PRN PRN Reason: COUGH Last Admin: 05/25/19 20:42 Dose: 100 mg Bupropion HCl (Bupropion Xl*) 300 mg PO QAM [facility] Last Admin: 05/25/19 09:54 Dose: 300 mg Cholecalciferol (Vitamin D Tab*) 1,000 units PO DAILY [facility] Last Admin: 05/25/19 09:54 Dose: 1,000 units Clonazepam (Klonopin Tab(*)) 0.25 mg PO DAILY PRN PRN Reason: ANXIETY Clonazepam (Klonopin Tab(*)) 1 mg PO BEDTIME PRN PRN Reason: ANXIETY Last Admin: 05/26/19 00:47 Dose: 1 mg Dextrose (D50w Syringe 50 Ml*) 12.5 gm IV PUSH .FOR FS < 60 - SS PRN PRN Reason: FS < 60 Enoxaparin Sodium (Lovenox(*)) 40 mg SUBCUT Q24H [facility] Last Admin: 05/25/19 10:01 Dose: 40 mg Escitalopram Oxalate (Lexapro *) 20 mg PO DAILY [facility] Last Admin: 05/25/19 09:54 Dose: 20 mg Doxycycline Hyclate 100 mg/ (Sodium Chloride) 250 mls @ 250 mls/hr IVPB Q12H [facility] Last Admin: 05/25/19 22:39 Dose: 250 mls/hr Ceftriaxone Sodium 2 gm/ (Sodium Chloride) 50 mls @ 100 mls/hr IVPB Q24H [facility] Last Admin: 05/25/19 13:54 Dose: 100 mls/hr Insulin Glargine (Lantus(*)) 50 units SUBCUT BID [facility] Last Admin: 05/25/19 20:44 Dose: 50 units Insulin Human Lispro (Humalog*) 0 units SUBCUT AC [facility]; Protocol Last Admin: 05/25/19 16:48 Dose: 12 units Lisinopril (Prinivil Tab*) 40 mg PO DAILY [facility] Last Admin: 05/25/19 09:54 Dose: 40 mg Mirabegron (Myrbetriq (Nf)) 25 mg PO BID [facility] Last Admin: 05/25/19 20:34 Dose: Not Given Nft: Calcium Carb/Magnesium Hydrox [ Antacid 1000-200 Mg Tab Chew] 3 Each) 3 each PO BEDTIME [facility] Last Admin: 05/25/19 20:34 Dose: Not Given Prednisone (Deltasone 20 Mg Tab) 20 mg PO BID [facility] Last Admin: 05/25/19 20:42 Dose: 20 mg Home Medications: Home Medications Medication Instructions Recorded Confirmed Type Ascorbic Acid TAB* [Vitamin C 500 mg PO DAILY 07/03/14 05/24/19 History TAB*] Atorvastatin* [Lipitor 40 MG*] 40 mg PO DAILY 07/03/14 05/24/19 History Biotin 2,500 mg SL DAILY 07/03/14 05/24/19 History Bupropion XL (NF) [Wellbutrin XL 300 mg PO QAM 07/03/14 05/24/19 History 300 MG (NF)] Cholecalciferol (Vitamin D3) 1,000 unit PO DAILY 07/03/14 05/24/19 History [Vitamin D3] Insulin Aspart [Novolog Flexpen] 14 - 16 units SUBCUT TID WITH 07/03/14 History MEALS MDD 60u clonazePAM TAB(*) [Klonopin TAB(*)] 0.5 tab PO DAILY PRN MDD 3 tabs 07/03/1407/09 History clonazePAM TAB(*) [Klonopin TAB(*)] 1 mg PO BEDTIME PRN MDD 3 tabs 07/03/1407/09 History Atenolol [Tenormin 100 MG] 100 mg PO DAILY 06/11/17 05/24/19 History amLODIPine TAB* [Norvasc 5 mg TAB*] 10 mg PO DAILY 06/11/17 05/24/19 History lisinopriL [Lisinopril] 50 mg PO DAILY 06/11/17 05/24/19 History Anastrozole (NF) [Arimidex (NF)] 1 mg PO DAILY 05/24/19 05/24/19 History Calcium Carb/Magnesium Hydrox 3 each PO BEDTIME 05/24/19 05/24/19 History [Antacid 1000-200 mg Tab Chew] Cider Vinegar [Apple Cider Vinegar] 300 mg PO DAILY 05/24/19 05/24/19 History Cranberry Fruit [Cranberry] 450 mg PO DAILY 05/24/19 05/24/19 History Cyanocobalamin TAB* [Vitamin B12 500 mcg PO DAILY 05/24/19 05/24/19 History TAB*] Empaglifozin (NF) [Jardiance] 25 mg PO DAILY 05/24/19 05/24/19 History Escitalopram * [Lexapro *] 20 mg PO DAILY 05/24/19 05/24/19 History Insulin Glargine,Hum.rec.anlog 50 units SUBCUT BID MDD 90u 05/24/19 05/24/19 History [Basaglar Kwikpen 100 inuts/ml 3 ml x 5 Pens] L.acidoph,Paracasei, B.lactis 1 each PO DAILY 05/24/19 05/24/19 History [Probiotic] LevoCETirizine TAB (NF) [Xyzal TAB 5 mg PO DAILY 05/24/19 05/24/19 History (NF)] Mirabegron (NF) [Myrbetriq (NF)] 25 mg PO BID 05/24/19 05/24/19 History Naproxen Sod/Diphenhydramine 1 tab PO BEDTIME 05/24/19 05/24/19 History [Aleve PM 220-25 mg] Allergies: Allergies Allergy/AdvReac Type Severity Reaction Status Date / Time peanut Allergy Severe severe Verified 05/24/19 06:29 headache hazelnut Allergy Headache Verified 05/24/19 06:29 ipratropium AdvReac Severe makes nose Verified 05/24/19 06:29 bleed locust Allergy Severe severe Uncoded 05/24/19 06:29 headache ENVIRONMENTAL Allergy Intermediate SEASONAL Uncoded 05/24/19 06:29 lecithin Allergy Intermediate See Comment Uncoded 05/24/19 06:29 raw potato, carrot, apples, Allergy Headache Uncoded 05/24/19 06:29 celery soy AdvReac Severe Headache Uncoded 05/24/19 06:29 Objective - Vital Signs Vital Signs: Vital Signs 05/25/19 05/25/19 05/25/19 09:54 11:15 13:02 Temperature 98.7 F Pulse Rate 75 Respiratory 16 20 22 Rate Blood Pressure 158/80 (mmHg) O2 Sat by Pulse 96 Oximetry 05/25/19 05/25/19 05/25/19 15:15 19:54 20:00 Temperature 98.4 F 99.1 F Pulse Rate 109 85 Respiratory 24 20 20 Rate Blood Pressure 141/69 160/76 (mmHg) O2 Sat by Pulse 96 93 Oximetry 05/25/19 05/26/19 05/26/19 23:47 00:47 02:34 Temperature 97.6 F Pulse Rate 75 Respiratory 19 18 18 Rate Blood Pressure 154/76 (mmHg) O2 Sat by Pulse 96 Oximetry 05/26/19 05/26/19 03:22 03:55 Temperature 97.5 F Pulse Rate 71 Respiratory 18 Rate Blood Pressure 170/85 158/80 (mmHg) O2 Sat by Pulse 100 Oximetry - Intake and Output Intake and Output: Intake & Output 05/23/19 05/24/19 05/25/19 05/26/19 11:59 11:59 11:59 11:59 Intake Total 1050 3415 2165 Balance 1050 3415 2165 Weight 223 lb 4.8 oz Intake: IV Fluids 1050 1855 15 NS (0.9%) 855 15 IVPB 870 ABX - CEFTRIAXONE 50 ABX - DOXYCYCLINE 520 NS (0.9%) 300 Oral 1560 1280 Other: Estimated Void Large Large Date of Last Bowel [id number] Movement # Bowel Movements 0 # Voids 0 1 ADLs: Meal Record Start: 05/24/19 11: 24 Freq: DAILY@0900,1400,1800 Status: Active Protocol: Created 05/24/19 11:24 System (Rec: 05/24/19 11:24 System MED-C09) Document 05/24/19 14:00 [id number] (Rec: 05/24/19 14:41 [id number] MED-C11) Document 05/24/19 18:00 [id number] (Rec: 05/24/19 18:55 [id number] MED-C09) Document 05/25/19 09:00 [id number] (Rec: 05/25/19 09:20 [id number] MED-C11) Document 05/25/19 13:48 [id number] (Rec: 05/25/19 13:48 [id number] MED-M25) Document 05/25/19 17:57 [id number] (Rec: 05/25/19 17:58 [id number] MED-C09) Intake and Output Start: 05/24/19 06: 28 Freq: Status: Active Protocol: Created 05/24/19 06:28 System (Rec: 05/24/19 06:28 System [id number]) Intake and Output Start: 05/24/19 11: 24 Freq: DAILY@0600,1400,2200 Status: Active Protocol: Created 05/24/19 11:24 System (Rec: 05/24/19 11:24 System MED-C09) Document 05/24/19 14:00 [id number] (Rec: 05/24/19 14:25 [id number] MED-C09) Document 05/24/19 22:00 [id number] (Rec: 05/24/19 22:21 [id number] MED-C09) Document 05/25/19 05:28 [id number] (Rec: 05/25/19 05:29 [id number] MED-C11) Document 05/25/19 14:00 [id number] (Rec: 05/25/19 14:04 [id number] MED-C09) Document 05/25/19 22:00 [id number] (Rec: 05/25/19 22:51 [id number] MED-C07) Document 05/26/19 05:42 [id number] (Rec: 05/26/19 05:42 [id number] MED-C07) - Physical Exam General Physical Exam Comment: She is coughing less today. She is not dypsneic at rest. The right lower leg has the contusion and surrounding erythema, warmth General: No Cyanosis, No Jaundice, No Clubbing Lungs and Chest: Yes: Chest Expansion Full, Chest Expansion Symetrica, Percussion Note Resonant, Crackles, Wheezes. No: Vessicular Breath Sounds, Respiratory Distress, Use of Accessory Muscles Heart Rate and Rhythm: Regular Additional Cardiovascular: Yes: Normal Heart Sounds. No: Heart Murmur, Pedal Edema Abdominal Exam: Yes: Soft. No: Distention, Abdominal Tenderness Results - Results Lab Results: Laboratory Results - last 24 hr 05/25/19 05/25/19 05/25/19 09:03 11:33 16:39 Patient Temperature Not Reportable ABG pH 7.40 ABG pH (Temp Correct) Not Reportable ABG pCO2 43 ABG pCO2 (Temp Corrct Not Reportable ABG pO2 100 ABG pO2 (Temp Correct Not Reportable ABG HCO3 26.1 ABG O2 Saturation 99.1 H ABG Base Excess 1.5 Respiration Rate Not Reportable O2 Delivery Device Nc Ventilator Type Not Reportable Vent Mode Not Reportable FiO2 Not Reportable Inspiratory Time Not Reportable PEEP Not Reportable Pressure Support Not Reportable Pressure Control Not Reportable EPAP Not Reportable IPAP Not Reportable BiPAP Not Reportable POC Glucose (mg/dL) 214 H 327 H 05/25/19 20:42 Patient Temperature ABG pH ABG pH (Temp Correct) ABG pCO2 ABG pCO2 (Temp Corrct ABG pO2 ABG pO2 (Temp Correct ABG HCO3 ABG O2 Saturation ABG Base Excess Respiration Rate O2 Delivery Device Ventilator Type Vent Mode FiO2 Inspiratory Time PEEP Pressure Support Pressure Control EPAP IPAP BiPAP POC Glucose (mg/dL) 292 H Assessment - Problem List Assessment: Patient Problems Acute bronchitis (Acute) Cellulitis of right lower leg (Acute) Fall (Acute) Respiratory failure with hypoxia (Acute) Type 2 diabetes mellitus with hyperglycemia (Acute) UTI (urinary tract infection) (Acute) Depression (Chronic) Diabetic peripheral neuropathy (Chronic) Essential hypertension (Chronic) History of breast cancer (Chronic) Hyperlipidemia (Chronic) Morbid obesity (Chronic) Non-proliferative diabetic retinopathy (Chronic) SID (obstructive sleep apnea) (Chronic) Right bundle branch block (Chronic) Plan: Acute bronchitis (Acute) Respiratory failure with hypoxia (Acute) This is improving with the antibiotics and the prednisone. I want her to have another 24 hours of this in a hospital setting. Her ABGs yesterday showed no further respiratory failure Cellulitis of right lower leg (Acute) This continues to be inflamed - I want to maintain her parenteral antibacterials another 24 hours UTI (urinary tract infection) (Acute) No culture results Comorbidities: Type 2 diabetes mellitus with hyperglycemia (Acute) The prednisone has increased her glucose levels, I will oscar this another day with increased basal insulin Fall (Acute) She was able to walk around the vigil yesterday Secondary diagnoses: Depression (Chronic) Diabetic peripheral neuropathy (Chronic) Essential hypertension (Chronic) History of breast cancer (Chronic) Hyperlipidemia (Chronic) Morbid obesity (Chronic) Non-proliferative diabetic retinopathy (Chronic) SID (obstructive sleep apnea) (Chronic) Right bundle branch block (Chronic) I discussed the above with Janie Dunbar and also called her daughter Cesilia Fleming. She reluctantly agreed to stay in the hospital another 24 hours.
[2019-05-26 08:30] LABS: ABS Lymphocytes 1.3 10^3/ul (1.0-4.8); ABS Monocytes 0.3 10^3/ul (0-0.8); ABS Neutrophils 2.4 10^3/ul (1.5-7.7); Eosinophil % 0.3 %; Hematocrit 45 % (35-47); Hemoglobin 15.1 g/dL (12.0-16.0); Lymphocyte % 32.1 %; Mean Corpuscular HGB Conc 34 g/dL (31-36); Mean Corpuscular Hemoglobin 31 pg (27-31); Mean Corpuscular Volume 91 fL (80-97); Nucleated Red Blood Cells % 0.1; Platelet Count 183 10^3/uL (150-450); Red Cell Distribution Width 13 % (10-15); White Blood Count 4.1 10^3/uL (3.5-10.8)
[2019-05-26 08:45] LABS: BUN/Creatinine Ratio 21.7 (8-20); C Reactive Protein 14.08 mg/L (<8.01); EGFR African American 117.3 (>60); EGFR Non-African American 96.9 (>60); Potassium 4.1 mmol/L (3.5-5.0)
[2019-05-26] MEDS: Insulin LISPRO* 1 UNITS UNIT SUBCUT SCH ×3 (09:53→17:45)
[2019-05-26] MEDS: Insulin GLARGINE(*) 1 UNITS UNIT SUBCUT SCH ×2 (09:54→20:58)
[2019-05-26] MEDS: CMCS: Anastrozole (NF) 1 MG TAB PO SCH (09:54)
[2019-05-26] MEDS: Cholecalciferol TAB* 1000 UNITS PO SCH (09:55)
[2019-05-26] MEDS: Lisinopril TAB* 10 MG PO SCH (09:55)
[2019-05-26] MEDS: Ascorbic Acid TAB* 500 MG PO SCH (09:55)
[2019-05-26] MEDS: BuPROPion XL* 300 MG TAB.XL PO SCH (09:55)
[2019-05-26] MEDS: Atorvastatin* 40 MG TAB PO SCH (09:55)
[2019-05-26] MEDS: amLODIPine TAB* 5 MG PO SCH (09:55)
[2019-05-26] MEDS: Escitalopram * 20 MG TABLET PO SCH (09:55)
[2019-05-26] MEDS: cefTRIAXone(*) 2 GM in NS 0.9% 50 ML* 50 ML IVPB SCH (09:56)
[2019-05-26] MEDS: Mirabegron (NF) 25 MG TAB PO SCH ×2 (09:56→22:19)
[2019-05-26] MEDS: clonazePAM TAB(*) 0.5 MG PO PRN (10:52)
[2019-05-26] MEDS: Benzonatate CAP* 100 MG PO PRN ×2 (10:53→20:56)
[2019-05-26] MEDS: DOXYcycline IV* 100 MG in NS 0.9% 250 ML* 250 ML IVPB SCH ×2 (11:26→22:38)
[2019-05-26] MEDS: Enoxaparin(*) 40 MG/0.4 ML SYR SUBCUT SCH (11:36)
[2019-05-26] MEDS: Acetaminophen TAB* 325 MG PO PRN (22:15)
[2019-05-26] MEDS: MAGNESIUM HYDROXIDE PO SCH (22:19)
[2019-05-26] MEDS: CALCIUM CARBONATE PO SCH (22:19)
[2019-05-27 04:54] LABS: ABS Monocytes 0.2 10^3/ul (0-0.8); ABS Neutrophils 3.7 10^3/ul (1.5-7.7); Eosinophil % 0.1 %; Hematocrit 41 % (35-47); Hemoglobin 13.7 g/dL (12.0-16.0); Lymphocyte % 20.6 %; Mean Corpuscular HGB Conc 33 g/dL (31-36); Mean Corpuscular Hemoglobin 31 pg (27-31); Mean Corpuscular Volume 91 fL (80-97); Mean Platelet Volume 7.4 fL (7.4-10.4); Platelet Count 172 10^3/uL (150-450); Red Blood Count 4.48 10^6 /uL (3.70-4.87); Red Cell Distribution Width 13 % (10-15); White Blood Count 4.9 10^3/uL (3.5-10.8)
[2019-05-27 05:13] LABS: BUN/Creatinine Ratio 28.1 (8-20); C Reactive Protein 7.15 mg/L (<8.01); Calcium 8.7 mg/dL (8.6-10.3); EGFR African American 124.4 (>60); EGFR Non-African American 102.8 (>60); Potassium 4.3 mmol/L (3.5-5.0)
[2019-05-27] MEDS: Insulin LISPRO* 1 UNITS UNIT SUBCUT SCH ×3 (09:27→17:57)
[2019-05-27] MEDS: Insulin GLARGINE(*) 1 UNITS UNIT SUBCUT SCH (09:28)
[2019-05-27] MEDS: CMCS: Anastrozole (NF) 1 MG TAB PO SCH (09:30)
[2019-05-27] MEDS: Lisinopril TAB* 10 MG PO SCH (09:31)
[2019-05-27] MEDS: BuPROPion XL* 300 MG TAB.XL PO SCH (09:31)
[2019-05-27] MEDS: Ascorbic Acid TAB* 500 MG PO SCH (09:31)
[2019-05-27] MEDS: Escitalopram * 20 MG TABLET PO SCH (09:32)
[2019-05-27] MEDS: Mirabegron (NF) 25 MG TAB PO SCH ×2 (09:32→21:53)
[2019-05-27] MEDS: Atorvastatin* 40 MG TAB PO SCH (09:32)
[2019-05-27] MEDS: Cholecalciferol TAB* 1000 UNITS PO SCH (09:32)
[2019-05-27] MEDS: amLODIPine TAB* 5 MG PO SCH (09:32)
[2019-05-27] MEDS: cefTRIAXone(*) 2 GM in NS 0.9% 50 ML* 50 ML IVPB SCH ×2 (10:01→11:19)
[2019-05-27] MEDS: clonazePAM TAB(*) 0.5 MG PO PRN (10:37)
[2019-05-27] MEDS: DOXYcycline IV* 100 MG in NS 0.9% 250 ML* 250 ML IVPB SCH (11:18)
[2019-05-27] MEDS: DOXYcycline CAP(*) 100 MG PO SCH ×2 (12:16→21:46)
[2019-05-27] MEDS: Atenolol TAB* 50 MG PO SCH (12:16)
[2019-05-27] MEDS: Enoxaparin(*) 40 MG/0.4 ML SYR SUBCUT SCH (12:16)
[2019-05-27] MEDS ORDERED: DOXYcycline CAP(*) 100 MG PO SCH (21:00)
[2019-05-27] MEDS: Acetaminophen TAB* 325 MG PO PRN (21:45)
[2019-05-27] MEDS: Benzonatate CAP* 100 MG PO PRN (21:46)
[2019-05-27] MEDS: clonazePAM TAB(*) 1 MG PO PRN (21:46)
[2019-05-27] MEDS: CALCIUM CARBONATE PO SCH (21:53)
[2019-05-27] MEDS: MAGNESIUM HYDROXIDE PO SCH (21:53)
[2019-05-27] MEDS ORDERED: Insulin GLARGINE(*) 1 UNITS UNIT SUBCUT ONE (23:45)
[2019-05-28] MEDS: Insulin GLARGINE(*) 1 UNITS UNIT SUBCUT SCH ×2 (00:05→09:53)
[2019-05-28] MEDS: Atenolol TAB* 50 MG PO SCH (09:44)
[2019-05-28] MEDS: Lisinopril TAB* 10 MG PO SCH (09:45)
[2019-05-28] MEDS: Escitalopram * 20 MG TABLET PO SCH (09:47)
[2019-05-28] MEDS: Cholecalciferol TAB* 1000 UNITS PO SCH (09:47)
[2019-05-28] MEDS: BuPROPion XL* 300 MG TAB.XL PO SCH (09:47)
[2019-05-28] MEDS: Atorvastatin* 40 MG TAB PO SCH (09:47)
[2019-05-28] MEDS: Ascorbic Acid TAB* 500 MG PO SCH (09:47)
[2019-05-28] MEDS: amLODIPine TAB* 5 MG PO SCH (09:47)
[2019-05-28] MEDS: Benzonatate CAP* 100 MG PO PRN (09:51)
[2019-05-28] MEDS: CMCS: Anastrozole (NF) 1 MG TAB PO SCH (09:53)
[2019-05-28] MEDS: Insulin LISPRO* 1 UNITS UNIT SUBCUT SCH ×2 (09:53→13:26)
[2019-05-28] MEDS: DOXYcycline CAP(*) 100 MG PO SCH (09:53)
[2019-05-28] MEDS: Mirabegron (NF) 25 MG TAB PO SCH (09:54)
[2019-05-28] MEDS: Enoxaparin(*) 40 MG/0.4 ML SYR SUBCUT SCH (12:30)
[2019-05-28 12:33] VITALS: BP 151/67
--- NOTE | 2019-05-28 19:45 | DS ---
CC: Dr. Banks * DISCHARGE SUMMARY: DATE OF ADMISSION: 05/24/19 DATE OF DISCHARGE: 05/28/19 DISCHARGE DIAGNOSES: 1. Bronchitis with bronchospasm. 2. Cellulitis, right lower leg, with recent trauma to leg. 3. Status post fall. 4. Type 2 diabetes mellitus with hyperglycemia. 5. History of depression. 6. Diabetic peripheral neuropathy. 7. Essential hypertension. 8. History of breast cancer. 9. Hyperlipidemia. 10. Morbid obesity. 11. Obstructive sleep apnea. 12. Nonproliferative diabetic retinopathy. 13. Right bundle-branch block. 14. Venous insufficiency of the lower extremities. HISTORY: The patient is a 78-year-old woman admitted with cough with yellow sputum, hypoxia, trauma to the right lower leg where her car door hit her. Please see the dictated admission note for details of the present illness, past medical history, family history, social and personal history, review of systems , and physical examination. LABORATORY DATA: CBC on admission: WBC 5.2, H and H 14.9/44, MCV 91, PLT 155, 000. CBC remained essentially unchanged throughout her hospitalization. CBC prior to discharge on 05/27/19, WBC 4.9, H and H 13.7/41, MCV 91, PLT 172,000. INR, PTT normal. ABGs on 05/25/19, pH 7.40, pCO2 of 43, pO2 of 100 on O2 nasal cannula (not clear; the patient said to be off oxygen for 5 minutes prior to the testing). Chemistries on admission: Sodium 138, potassium 4.0, chloride 104 , CO2 of 27, BUN and creatinine 10/0.61, glucose 174, calcium 8.4, alk phos 127 , CRP 11.45. Rest of her comprehensive metabolic panel was essentially within normal limits. BNP normal at 86. Lactic acid normal at 0.9. Point of care glucoses throughout her hospitalization ranged from 63 to 327. Urinalysis: Yellow cloudy, specific gravity 1.025, pH 6, dipsticks positive for ketones trace, nitrite positive, esterase trace, wbc's 3+, rbc's 2+, bacteria 2+, glucose 3+. Influenza A and B were negative. Urine culture was no growth. Sputum culture Gram stain showed mixed organism, 4+ neutrophils, grew out normal caitlin. Blood cultures x2 were no growth. Urine for legionella and pneumonococcal antigens were negative. IMAGING: Chest x-ray on 05/24/19 showed no active cardiopulmonary disease. Chest and thorax CTA on 05/24/19 showed no definite pulmonary emboli. No evidence for thoracic aortic dissection. Atelectasis in the lingula was noted. No other alveolar consolidation was noted. EKG on 05/24/19 showed sinus rhythm, right bundle-branch block. HOSPITAL COURSE: The patient was initially seen in the emergency room. There, she was noted to have productive cough and wheezing. Her O2 was in the low 90s on 2 L and went down into the mid 80s on room air after a second breathing treatment. She was admitted from the emergency room. She was continued on antibiotics, doxycycline and ceftriaxone. She was given a flutter valve and ordered albuterol via nebulizer. She received supplemental oxygen. Her insulin was continued for diabetes; because of steroids that she received, her glargine insulin was increased. Her usual antihypertensives were continued. Her usual clonazepam was continued as well as Lexapro and Wellbutrin. She was DNR per her wishes. She was placed on Lovenox subcutaneously for DVT prophylaxis. It was felt that the antibiotics were also treating her for cellulitis of the right lower leg after her injury. She was started on prednisone on 05/25/19. She was thought to have possible urinary tract infection, but cultures were negative. Ceftriaxone was felt to have covered that. On 05/26/19, she was coughing less, was able to walk around the vigil. It was felt that she should have another 24 hours in the hospital. Legs seemed to be improving. When seen on 05/27/19, she continued to cough. Her right lower leg was not sore except when touched. She did not feel ready to go home. It was noted that she was not receiving atenolol. Her blood pressure was 157/ 72, pulse 72. Her atenolol was resumed. She was switched from IV to oral antibiotics which is doxycycline. Her blood sugar was felt to be fairly well controlled. She did choke on a piece of chicken on 05/27/19, panicked but it was in her esophagus and she was able to get it down. By 05/28/19, she felt up to going home. She was still coughing. She said her leg felt the same. PHYSICAL EXAMINATION: On exam, blood pressure 151/67, pulse 63, respirations 20 , temperature afebrile, O2 sat was 96% on room air. Chest showed inspiratory and expiratory rhonchi. Heart was regular. Extremities were without edema with bilateral venous stasis changes and hematoma on the right anterior tolbert, which is tender. Her blood sugars had ranged 63 to 154 over the stay. Glargine had been held the night before. At the time of discharge, she is going home in improved condition. MEDICATIONS AT THE TIME OF DISCHARGE: As follows: 1. Biotin 2500 mcg daily. 2. NovoLog 14 to 16 units t.i.d. with meals. 3. Clonazepam 0.5 mg at bedtime and p.r.n. with an MDD of 3. 4. Bupropion XL 300 mg daily. 5. Atorvastatin 40 mg daily. 6. Vitamin D3 1000 units daily. 7. Ascorbic acid 500 mg daily. 8. Amlodipine 5 mg daily. 9. Lisinopril 40 mg daily. 10. Atenolol 100 mg daily. 11. B12 500 mcg daily. 12. Probiotic 1 daily. 13. Myrbetriq 25 mg b.i.d. 14. Levocetirizine 5 mg daily. 15. Jardiance 25 mg daily. 16. Lexapro (escitalopram) 20 mg daily. 17. Cranberry 450 mg daily. 18. Calcium carbonate 3 at bedtime. 19. Glargine 50 units twice a day. 20. Cider vinegar capsule 300 mg daily. 21. Anastrozole 1 mg daily. 22. Naproxen PM 220/25 one at bedtime as needed. 23. Albuterol HFA 2 puffs every 4 hours as needed for cough, shortness of breath, or wheezing. 24. Benzonatate 100 mg q.4 h p.r.n. cough. 25. Doxycycline 100 mg twice a day for 8 days. 26. Prednisone 40 mg for 2 days, 30 mg for 2 days, 20 mg for 2 days, 10 mg for 2 days. DIET: As usual. ACTIVITIES: As tolerated. FOLLOWUP: With Dr. Banks in 4 to 7 days. [id number] #: [id number] [facility]
== END 2019-05-28 17:00 | DRG 202 ==
LOC: ED 06:21 → MED 10:29 → OBSVTOIN 05-25 09:00
PROVIDERS: ADMIT Hospitalist; ATTEND Internal Medicine Geriatric Medicine
PROC: 5A09357 Assistance with Respiratory Ventilation, Less than 24 Consecutive Hours, Continuous Positive Airway Pressure (ICD-10-PCS; principal; 2019-05-24)
DX: J20.9 Acute bronchitis, unspecified (principal); J96.01 Acute respiratory failure with hypoxia; L03.115 Cellulitis of right lower limb; N39.0 Urinary tract infection, site not specified; E11.65 Type 2 diabetes mellitus with hyperglycemia; I50.9 Heart failure, unspecified; I11.0 Hypertensive heart disease with heart failure; K21.9 Gastro-esophageal reflux disease without esophagitis; M17.0 Bilateral primary osteoarthritis of knee; M19.072 Primary osteoarthritis, left ankle and foot; M19.071 Primary osteoarthritis, right ankle and foot; F41.9 Anxiety disorder, unspecified; E78.5 Hyperlipidemia, unspecified; E66.01 Morbid (severe) obesity due to excess calories; I45.10 Unspecified right bundle-branch block; Z66 Do not resuscitate; E11.42 Type 2 diabetes mellitus with diabetic polyneuropathy; E11.3299 Type 2 diabetes mellitus with mild nonproliferative diabetic retinopathy without macular edema, unspecified eye; G47.33 Obstructive sleep apnea (adult) (pediatric); I44.0 Atrioventricular block, first degree; I87.2 Venous insufficiency (chronic) (peripheral); R29.6 Repeated falls; F32.9 Major depressive disorder, single episode, unspecified; Z85.3 Personal history of malignant neoplasm of breast; Z86.711 Personal history of pulmonary embolism; Z98.42 Cataract extraction status, left eye; Z91.018 Allergy to other foods; Z91.010 Allergy to peanuts; Z88.8 Allergy status to other drugs, medicaments and biological substances; Z98.41 Cataract extraction status, right eye; Z68.37 Body mass index [BMI] 37.0-37.9, adult; Z90.11 Acquired absence of right breast and nipple; Z91.81 History of falling; Z79.4 Long term (current) use of insulin; Z79.899 Other long term (current) drug therapy
CPT/HCPCS: 36415; 36600; 71045; 71275; 80048; 80053; 81003; 81015; 82803; 83605; 83880; 84484; 85025; 85610; 85730; 86140; 87040; 87070; 87086; 87205; 87899; 93005; 94640; 94660; 99284; A9270-GY; G0378; J0456; J0696; J1650; J7512; J7611; Q9967

== ENCOUNTER 2021-06-27 14:08 | Observation (INO) ==
[2021-06-27 17:11] LABS: Hematocrit 42 % (35-47); Hemoglobin 14.7 g/dL (12.0-16.0); Mean Corpuscular HGB Conc 35 g/dL (31-36); Mean Corpuscular Hemoglobin 31 pg (27-31); Mean Corpuscular Volume 90 fL (80-97); Mean Platelet Volume 8.2 fL (7.4-10.4); Platelet Count 224 10^3/uL (150-450); Red Blood Count 4.72 10^6 /uL (3.70-4.87); Red Cell Distribution Width 14 % (10-15)
[2021-06-27 17:32] LABS: INR 0.96 (0.86-1.15)
[2021-06-27 17:34] LABS: High Sens Troponin Baseline 10 pg/mL (<15)
[2021-06-27 18:06] LABS: ALT 31 U/L (7-52); Albumin 3.4 g/dL (3.2-5.2); Albumin/Globulin Ratio 1.8 (1-3); Alkaline Phosphatase 114 U/L (35-149); Blood Urea Nitrogen 10 mg/dL (6-24); Calcium 7.6 mg/dL (8.6-10.3); Chloride 98 mmol/L (101-111); Globulin 1.9 g/dL (2-4); Glucose 97 mg/dL (70-100); Sodium 133 mmol/L (135-145); Total Protein 5.3 g/dL (6.4-8.9)
[2021-06-27] MEDS ORDERED: CALCIUM GLUCONATE 1GM/50ML NS 1 GM/50 ML BAG IV ONE (18:11)
[2021-06-27 18:48] LABS: High Sensitivity Troponin 1 Hr 11 pg/mL (<15)
[2021-06-27 18:51] LABS: CO2 Carbon Dioxide 29 mmol/L (22-32)
[2021-06-27 19:24] LABS: Magnesium 2.2 mg/dL (1.9-2.7)
[2021-06-27 19:41] LABS: ABS Eosinophils 0.1 10^3/ul (0-0.6); ABS Lymphocytes 1.9 10^3/ul (1.0-4.8); ABS Monocytes 0.7 10^3/ul (0-0.8); ABS Neutrophils 3.2 10^3/ul (1.5-7.7); Eosinophil % 1.4 %; Lymphocyte % 31.4 %; Nucleated Red Blood Cells % 0.1
[2021-06-27] MEDS: Enoxaparin 40 MG/0.4 ML SYR SUBCUT SCH (22:26)
[2021-06-27] MEDS ORDERED: Dextrose 50% Syringe 50 ml 25 GM/50 ML SYRINGE IV PUSH PRN (22:52)
[2021-06-28 00:05] LABS: Vitamin D Total 25(OH) 73.5 ng/mL (20-50)
[2021-06-28 05:33] LABS: Potassium 4.1 mmol/L (3.5-5.0)
[2021-06-28 05:41] LABS: Calcium 8.1 mg/dL (8.6-10.3); eGFR CKD-EPI 95.8 (>60)
[2021-06-28] MEDS: Cholecalciferol (VIT D3) 1,000 unit TAB PO SCH (08:52)
[2021-06-28] MEDS: Insulin GLARGINE 100 un/ml 10 ml VIAL SUBCUT SCH ×2 (08:53→22:25)
[2021-06-28] MEDS: Clotrimazole 1% CREAM 30 gm TOPICAL SCH ×2 (12:29→22:25)
[2021-06-28] MEDS: CALCIUM CARB MAGNESIUM CARB PO SCH (22:17)
[2021-06-28] MEDS: Enoxaparin 40 MG/0.4 ML SYR SUBCUT SCH (23:00)
[2021-06-29] MEDS: Cholecalciferol (VIT D3) 1,000 unit TAB PO SCH (08:44)
[2021-06-29] MEDS: Insulin GLARGINE 100 un/ml 10 ml VIAL SUBCUT SCH ×2 (08:45→22:12)
[2021-06-29] MEDS: Clotrimazole 1% CREAM 30 gm TOPICAL SCH ×2 (09:15→22:18)
[2021-06-29] MEDS: Enoxaparin 40 MG/0.4 ML SYR SUBCUT SCH (22:14)
[2021-06-29] MEDS: CALCIUM CARB MAGNESIUM CARB PO SCH (22:17)
[2021-06-30] MEDS: Cholecalciferol (VIT D3) 1,000 unit TAB PO SCH (09:04)
[2021-06-30] MEDS: Insulin GLARGINE 100 un/ml 10 ml VIAL SUBCUT SCH (09:05)
[2021-06-30] MEDS: Clotrimazole 1% CREAM 30 gm TOPICAL SCH (09:06)
[2021-06-30 13:31] VITALS: BP 138/69
== END 2021-06-30 16:30 ==
LOC: EDHOLD 14:08 → ED 14:08 → SUATTDRO 20:00 → MEDTELE 06-28 01:28
PROVIDERS: ADMIT Hospitalist; ATTEND Internal Medicine

== ENCOUNTER 2021-07-01 12:04 | Inpatient (IN) ==
[2021-07-01 14:22] LABS: ALT 47 U/L (7-52); Albumin 3.2 g/dL (3.2-5.2); Albumin/Globulin Ratio 1.5 (1-3); Alkaline Phosphatase 213 U/L (35-149); Blood Urea Nitrogen 11 mg/dL (6-24); CO2 Carbon Dioxide 27 mmol/L (22-32); Calcium 8.1 mg/dL (8.6-10.3); Chloride 105 mmol/L (101-111); Creatine Kinase 66 U/L (10-223); Globulin 2.2 g/dL (2-4); Glucose 159 mg/dL (70-100); Sodium 140 mmol/L (135-145); Total Protein 5.4 g/dL (6.4-8.9); eGFR CKD-EPI 96.3 (>60)
[2021-07-01 14:51] LABS: High Sens Troponin Baseline 8 pg/mL (<15)
[2021-07-01 15:10] LABS: Hematocrit 43 % (35-47); Hemoglobin 14.7 g/dL (12.0-16.0); Mean Corpuscular HGB Conc 34 g/dL (31-36); Mean Corpuscular Hemoglobin 31 pg (27-31); Mean Corpuscular Volume 92 fL (80-97); Mean Platelet Volume 7.4 fL (7.4-10.4); Platelet Count 237 10^3/uL (150-450); Red Blood Count 4.72 10^6 /uL (3.70-4.87); Red Cell Distribution Width 14 % (10-15); White Blood Count 5.3 10^3/uL (3.5-10.8)
[2021-07-01 15:45] LABS: Anion Gap 8 mmol/L (2-11)
[2021-07-01 15:55] LABS: Magnesium 1.9 mg/dL (1.9-2.7); Potassium Redraw 3.6 mmol/L (3.5-5.0)
[2021-07-01 16:34] LABS: RBC Morphology Normal (Normal)
[2021-07-01 16:36] LABS: ABS Basophils 0.1 10^3/ul (0-0.2); ABS Eosinophils 0.1 10^3/ul (0-0.6); ABS Lymphocytes 1.6 10^3/ul (1.0-4.8); ABS Monocytes 0.9 10^3/ul (0-0.8); ABS Neutrophils 2.6 10^3/ul (1.5-7.7); Eosinophil % 2.3 %; Lymphocyte % 31.2 %; Nucleated Red Blood Cells % 0.1
[2021-07-01] MEDS ORDERED: Enoxaparin 40 MG/0.4 ML SYR SUBCUT SCH (17:00)
[2021-07-01] MEDS ORDERED: Albuterol HFA INHALER 8 gm MDI INH PRN (17:39)
[2021-07-01] MEDS ORDERED: Neomycin/Polymy/Dex OPTH.SUSP MAXITROL 0.1% 5 ML BOTH EYES SCH (18:00)
[2021-07-01] MEDS ORDERED: Dextrose 50% Syringe 50 ml 25 GM/50 ML SYRINGE IV PUSH PRN (18:05)
[2021-07-01] MEDS: Clotrimazole 1% CREAM 30 gm TOPICAL SCH (22:15)
[2021-07-01] MEDS: Insulin GLARGINE 100 un/ml 10 ml VIAL SUBCUT SCH (22:19)
[2021-07-01 23:28] LABS: Urine Appearance Turbid; Urine Bilirubin Negative (Negative); Urine Blood 1+ (Negative); Urine Color Yellow; Urine Glucose 3+(>=500 mg/dL) (Negative); Urine Ketones Negative (Negative); Urine Nitrite Negative (Negative); Urine Protein Negative (Negative); Urine Specific Gravity 1.018 (1.002-1.030); Urine Urobilinogen Negative (Negative)
[2021-07-01 23:53] LABS: Urine Bacteria 1+ (Absent); Urine Red Blood Cell 3+(>10/hpf) (Absent); Urine Squamous Epithelial Cell Present (Absent); Urine White Blood Cell 3+(>20/hpf) (Absent)
[2021-07-02] MEDS ORDERED: cefTRIAXone 1 gm/50 mL D5W 1 GM/50 ML BAG IV SCH (00:45)
[2021-07-02 07:16] VITALS: BP 125/62
[2021-07-02] MEDS: Insulin GLARGINE 100 un/ml 10 ml VIAL SUBCUT SCH (08:42)
[2021-07-02] MEDS: Clotrimazole 1% CREAM 30 gm TOPICAL SCH (08:51)
[2021-07-02] MEDS ORDERED: Cholecalciferol (VIT D3) 1,000 unit TAB PO SCH (09:00)
[2021-07-02] MEDS ORDERED: NFT: Mirabegron 25 mg ER TAB (NF) PO SCH (09:00)
== END 2021-07-02 11:50 | DRG 690 ==
LOC: ED 12:04 → EDHOLD 16:32 → INTOOBSV 16:32 → OBSVTOIN 16:32 → MED 19:20
PROVIDERS: ADMIT Internal Medicine; ATTEND Internal Medicine

== ENCOUNTER 2021-08-25 13:33 | Observation (INO) ==
[2021-08-25 15:56] LABS: Albumin 4.4 g/dL (3.2-5.2); CO2 Carbon Dioxide 20 mmol/L (22-32); Chloride 104 mmol/L (101-111); Sodium 134 mmol/L (135-145)
[2021-08-25 15:57] LABS: Anion Gap 10 mmol/L (2-11)
[2021-08-25 16:03] LABS: ALT 66 U/L (7-52); Albumin/Globulin Ratio 1.8 (1-3); Alkaline Phosphatase 142 U/L (35-149); Blood Urea Nitrogen 30 mg/dL (6-24); Globulin 2.4 g/dL (2-4); Glucose 205 mg/dL (70-100); Lipase 20 U/L (11.0-82.0); Total Protein 6.8 g/dL (6.4-8.9); eGFR CKD-EPI 56.3 (>60)
[2021-08-25 16:06] LABS: ABS Basophils 0.1 10^3/ul (0-0.2); ABS Lymphocytes 1.1 10^3/ul (1.0-4.8); ABS Monocytes 0.4 10^3/ul (0-0.8); ABS Neutrophils 7.1 10^3/ul (1.5-7.7); Eosinophil % 0.1 %; Hematocrit 48 % (35-47); Hemoglobin 15.5 g/dL (12.0-16.0); Lymphocyte % 12.4 %; Mean Corpuscular HGB Conc 33 g/dL (31-36); Mean Corpuscular Hemoglobin 31 pg (27-31); Mean Corpuscular Volume 95 fL (80-97); Mean Platelet Volume 8.3 fL (7.4-10.4); Platelet Count 203 10^3/uL (150-450); Red Blood Count 5.02 10^6 /uL (3.70-4.87); Red Cell Distribution Width 15 % (10-15); White Blood Count 8.7 10^3/uL (3.5-10.8)
[2021-08-25] MEDS ORDERED: Lidocaine 1% w EPI 1:100,000 MDV 20 ML VIAL INJ ONE (18:16)
[2021-08-25 18:22] LABS: Urine Appearance Cloudy; Urine Bilirubin Negative (Negative); Urine Blood Negative (Negative); Urine Color Yellow; Urine Glucose 3+(>=500 mg/dL) (Negative); Urine Ketones 1+ (Negative); Urine Nitrite Negative (Negative); Urine Protein Negative (Negative); Urine Specific Gravity 1.027 (1.002-1.030); Urine Urobilinogen Negative (Negative)
[2021-08-25 19:01] LABS: Urine Bacteria Absent (Absent); Urine Red Blood Cell Absent (Absent); Urine Squamous Epithelial Cell Present (Absent); Urine White Blood Cell 1+(6-10/hpf) (Absent)
[2021-08-25] MEDS ORDERED: Bacitracin OINTMENT TUBE TOPICAL ONE (20:26)
[2021-08-26] MEDS ORDERED: NON FORMULARY MED (Insulin Aspart U-100 [Novolog Flexpen U-100 Insulin] 100 unit/mL (3 mL) SUBCUT SCH (01:15)
[2021-08-26] MEDS ORDERED: Dextrose 50% Syringe 50 ml 25 GM/50 ML SYRINGE IV PUSH PRN ×2 (01:35→11:50)
[2021-08-26] MEDS: Enoxaparin 40 MG/0.4 ML SYR SUBCUT SCH ×2 (02:33→21:53)
[2021-08-26 05:31] LABS: High Sensitivity Troponin 1 Hr 8 pg/mL (<15)
[2021-08-26] MEDS: Insulin GLARGINE 100 un/ml 10 ml VIAL SUBCUT SCH ×2 (07:32→21:54)
[2021-08-26] MEDS: CMCS: Anastrozole 1 mg TAB (NF) PO SCH (08:38)
[2021-08-26] MEDS ORDERED: NF: Mirabegron 25 mg ER TAB (NF) PO SCH (09:00)
[2021-08-26] MEDS ORDERED: EMPAGLIFLOZIN 25 MG PO SCH (09:00)
[2021-08-27 06:54] LABS: ABS Basophils 0.1 10^3/ul (0-0.2); ABS Eosinophils 0.2 10^3/ul (0-0.6); ABS Lymphocytes 1.7 10^3/ul (1.0-4.8); ABS Monocytes 0.5 10^3/ul (0-0.8); ABS Neutrophils 2.5 10^3/ul (1.5-7.7); Eosinophil % 3.4 %; Hematocrit 38 % (35-47); Lymphocyte % 35.7 %; Mean Corpuscular HGB Conc 34 g/dL (31-36); Mean Corpuscular Hemoglobin 32 pg (27-31); Mean Corpuscular Volume 93 fL (80-97); Mean Platelet Volume 7.9 fL (7.4-10.4); Platelet Count 169 10^3/uL (150-450); Red Blood Count 4.12 10^6 /uL (3.70-4.87); Red Cell Distribution Width 14 % (10-15); White Blood Count 4.9 10^3/uL (3.5-10.8)
[2021-08-27 07:33] LABS: Calcium 8.2 mg/dL (8.6-10.3); Potassium 4.2 mmol/L (3.5-5.0)
[2021-08-27 07:40] VITALS: BP 123/72
[2021-08-27] MEDS: CMCS: Anastrozole 1 mg TAB (NF) PO SCH (09:22)
[2021-08-27] MEDS: Insulin GLARGINE 100 un/ml 10 ml VIAL SUBCUT SCH (09:30)
== END 2021-08-27 11:00 ==
LOC: EDHOLD 13:33 → ED 13:33 → SUATTDRO 08-26 01:03 → EDHOLD 08-26 03:03 → SSU 08-26 04:01
PROVIDERS: ADMIT Internal Medicine; ATTEND Internal Medicine

== ENCOUNTER 2022-08-31 06:09 | Inpatient (IN) ==
[2022-08-31 06:45] LABS: ABS Eosinophils 0.1 10^3/uL (0.0-0.5); ABS Lymphocytes 1.4 10^3/uL (1.0-4.8); ABS Monocytes 0.5 10^3/uL (0.0-0.9); ABS Neutrophils 6.5 10^3/uL (1.5-7.6); Eosinophil % 1.6 %; Hematocrit 46.5 % (35-45); Hemoglobin 15.8 g/dL (11.5-14.3); Lymphocyte % 16.3 %; Mean Corpuscular Hemoglobin 30.7 pg (27-33); Mean Corpuscular Volume 90.1 fL (80-97); Mean Platelet Volume 7.9 fL (7.5-11.2); Platelet Count 199 10^3/uL (150-450); Red Blood Count 5.16 10^6/uL (3.63-4.92); Red Cell Distribution Width 14.1 % (12-17); White Blood Count 8.5 10^3/uL (3.8-11.8)
[2022-08-31] MEDS ORDERED: Morphine 2 MG/ML SYRINGE IV ONE (06:45)
[2022-08-31] MEDS ORDERED: Ondansetron 4 mg VIAL 2 MG/ML 2 ml VIAL IV ONE (07:15)
[2022-08-31 08:23] LABS: High Sensitivity Troponin 1 Hr 294 pg/mL (<15)
[2022-08-31 08:36] LABS: Albumin 4.1 g/dL (3.2-5.2); Magnesium 2.2 mg/dL (1.9-2.7); Potassium 4.1 mmol/L (3.5-5.0); Total Bilirubin 0.5 mg/dL (0.2-1.0)
[2022-08-31 08:42] LABS: Albumin/Globulin Ratio 1.5 (1-3); Creatinine, Serum 0.79 mg/dL (0.51-0.95); Globulin 2.7 g/dL (2-4); Total Protein 6.8 g/dL (6.4-8.9); eGFR CKD-EPI 75.1 (>60)
[2022-08-31 10:22] LABS: ABS Lymphocytes 1.3 10^3/uL (1.0-4.8); ABS Monocytes 0.4 10^3/uL (0.0-0.9); ABS Neutrophils 5.3 10^3/uL (1.5-7.6); Eosinophil % 0.5 %; Hematocrit 43.9 % (35-45); Hemoglobin 14.6 g/dL (11.5-14.3); Lymphocyte % 18.6 %; Mean Corpuscular Hemoglobin 30.4 pg (27-33); Mean Corpuscular Hgb Conc 33.4 g/dL (31-36); Mean Corpuscular Volume 91.2 fL (80-97); Mean Platelet Volume 7.6 fL (7.5-11.2); Platelet Count 193 10^3/uL (150-450); Red Blood Count 4.81 10^6/uL (3.63-4.92); Red Cell Distribution Width 14.2 % (12-17); White Blood Count 7.1 10^3/uL (3.8-11.8)
[2022-08-31] MEDS: Heparin DRIP 25,000 UNITS BAG 25,000 UNITS/500 ML BAG IV SCH ×2 (10:23→16:33)
[2022-08-31 10:43] LABS: Creatinine, Serum 0.66 mg/dL (0.51-0.95); eGFR CKD-EPI 88.1 (>60)
[2022-08-31] MEDS ORDERED: Heparin 5000 UNITS/ML 1 mL VIAL IV SCH (11:00)
[2022-08-31] MEDS ORDERED: NS 0.9% 1000 ml BAG 1,000 ML IV SCH (11:30)
[2022-08-31] MEDS ORDERED: VERAPAMIL 2.5 MG/ML 2 ML VIAL ** 5 mg/2 ml ONE (12:53)
[2022-08-31] MEDS ORDERED: Midazolam 5 mg/5 ml VIAL 1 mg/ml 5 ml VIAL (5 mg) ONE (12:53)
[2022-08-31] MEDS ORDERED: Heparin 1,000 UNIT/ML 10 ml (10,000 UNITS) CATHLAB/DIALYSIS ONE (12:53)
[2022-08-31] MEDS ORDERED: fentaNYL 100 mcg/2 ml 50 MCG/ML VIAL ONE ×2 (12:53→15:19)
[2022-08-31] MEDS ORDERED: nitroGLYCERIN DRIP 25,000 MCG/250 ML BTL ONE ×2 (12:53→15:57)
[2022-08-31] MEDS ORDERED: Heparin 2 UNITS/ML 1000 mls 2,000 ML IV ONE (12:53)
[2022-08-31] MEDS ORDERED: Iohexol 350 (CONTRAST) 200 ML MDV IV ONE (12:54)
[2022-08-31] MEDS ORDERED: Lidocaine 1% MPF 5 ML VIAL ONE (12:54)
[2022-08-31] MEDS ORDERED: Midazolam 10 mg/10 ml VIAL 1 mg/ml 10 ml VIAL (10 mg) IV SLOW PU ONE (13:40)
[2022-08-31] MEDS ORDERED: fentaNYL 100 mcg/2 ml 50 MCG/ML VIAL IV SLOW PU ONE (13:40)
[2022-08-31] MEDS ORDERED: Ondansetron 4 mg VIAL 2 MG/ML 2 ml VIAL ONE (15:18)
[2022-08-31] MEDS: Ondansetron 4 mg VIAL 2 MG/ML 2 ml VIAL IV PRN ×2 (15:34→19:41)
[2022-08-31] MEDS: fentaNYL 100 mcg/2 ml 50 MCG/ML VIAL IV SLOW PU PRN ×2 (15:34→21:06)
[2022-08-31] MEDS ORDERED: nitroGLYCERIN DRIP 25,000 MCG/250 ML BTL IV SCH (16:00)
[2022-08-31 16:02] LABS: INR 1.03 (0.88-1.18)
[2022-08-31] MEDS ORDERED: Dextrose 50% Syringe 50 ml 25 GM/50 ML SYRINGE IV PUSH PRN (19:00)
[2022-08-31] MEDS: Insulin GLARGINE 100 un/ml 10 ml VIAL SUBCUT SCH (20:44)
[2022-09-01] MEDS: fentaNYL 100 mcg/2 ml 50 MCG/ML VIAL IV SLOW PU PRN (01:16)
[2022-09-01 05:49] LABS: ABS Eosinophils 0.1 10^3/uL (0.0-0.5); ABS Lymphocytes 1.2 10^3/uL (1.0-4.8); ABS Monocytes 0.6 10^3/uL (0.0-0.9); ABS Neutrophils 6.1 10^3/uL (1.5-7.6); Eosinophil % 1.5 %; Hematocrit 42.2 % (35-45); Hemoglobin 14.2 g/dL (11.5-14.3); Lymphocyte % 14.5 %; Mean Corpuscular Hemoglobin 30.2 pg (27-33); Mean Corpuscular Hgb Conc 33.7 g/dL (31-36); Mean Corpuscular Volume 89.7 fL (80-97); Mean Platelet Volume 7.6 fL (7.5-11.2); Nucleated Red Blood Cells % 0.1 /100 WBC (0.0-0.4); Platelet Count 180 10^3/uL (150-450); Red Blood Count 4.71 10^6/uL (3.63-4.92); White Blood Count 8.1 10^3/uL (3.8-11.8)
[2022-09-01 05:53] LABS: Urine Appearance Cloudy; Urine Bilirubin Negative (Negative); Urine Blood Negative (Negative); Urine Color Yellow; Urine Glucose 3+(>=500 mg/dL) (Negative); Urine Ketones 1+ (Negative); Urine Nitrite Negative (Negative); Urine Protein Negative (Negative); Urine Specific Gravity 1.033 (1.002-1.030); Urine Urobilinogen Negative (Negative)
[2022-09-01 06:06] LABS: Urine Bacteria 3+ (Absent); Urine Red Blood Cell 2+(6-10/hpf) (Absent); Urine Squamous Epithelial Cell Present (Absent); Urine White Blood Cell 3+(>20/hpf) (Absent)
[2022-09-01] MEDS: Insulin GLARGINE 100 un/ml 10 ml VIAL SUBCUT SCH (08:50)
[2022-09-01] MEDS ORDERED: Empagliflozin 25 MG TAB PO SCH (09:00)
[2022-09-01 09:20] LABS: HDL Cholesterol 65.8 mg/dL
[2022-09-01 13:48] LABS: Magnesium 2.1 mg/dL (1.9-2.7); Potassium 4.2 mmol/L (3.5-5.0)
[2022-09-01] MEDS: Heparin DRIP 25,000 UNITS BAG 25,000 UNITS/500 ML BAG IV SCH (16:42)
[2022-09-02 04:28] VITALS: BP 111/69
== END 2022-09-02 06:13 | disposition short-term general hospital (02) | DRG 282 ==
LOC: ED 06:09 → EDHOLD 11:56 → SUATTDRO 11:56 → EDHOLD 12:09 → ICU 16:21
PROVIDERS: ADMIT Hospitalist; ATTEND Hospitalist